=== PATIENT | male | born 1960 | race Caucasian/White ===

== ENCOUNTER 2021-05-23 08:24 | Inpatient (IN) ==
[2021-05-23] MEDS ORDERED: LORazepam 1 MG/2 ML VIAL IV STA (08:34)
[2021-05-23] MEDS ORDERED: LORazepam 2 MG/4 ML VIAL ONE (08:34)
--- NOTE | 2021-05-23 08:43 | Emergency Department Note ---
History of Present Illness General Chief complaint: Hypoglycemia Time Seen by Provider: 05/23/21 08:33 History of Present Illness 60-year-old male presents to the ED via EMS. He apparently is recently living with some friends or family. They called EMS this morning because they heard him moaning in unusual activity in the room. The initial call was for cardiac arrest. They did do a few chest compressions on the patient until they saw him start breathing. EMS arrived and found his blood sugar to be 30. He is known to be diabetic. They did give 1 bag of D10. Blood sugar did improve to over 100 after this. He briefly became slightly more responsive and then had a seizure that lasted for about 30 seconds. He was transported here somewhat combative and subsequently causes IV to be pulled out. His combativeness improved by the time he arrived. He was able to answer some basic questions like his name but otherwise was unable to formulate sentences. He may have some alcohol history as there was some beer near where he was found. He was unable to answer those questions. Shortly after he arrived in the ED, he had another seizure. This lasted for about a minute. Home Medications Medication Instructions Recorded Confirmed Type atorvastatin 10 mg tablet 10 mg PO DAILY 05/23/21 05/23/21 History duloxetine 30 mg capsule,delayed 30 mg PO DAILY 05/23/21 05/23/21 History release glipizide 10 mg tablet 10 mg PO BIDM 05/23/21 05/23/21 History lisinopril 10 mg tablet 10 mg PO DAILY 05/23/21 05/23/21 History metformin 1,000 mg tablet 1,000 mg PO BIDM 05/23/21 05/23/21 History metoprolol tartrate 50 mg tablet 50 mg PO BID 05/23/21 05/23/21 History oxycodone-acetaminophen 10 mg-325 1 tab PO BID 05/23/21 05/23/21 History mg tablet Allergies Allergy/AdvReac Type Severity Reaction Status Date / Time No Known Allergies Allergy Unverified 05/23/21 08:47 Past Med/Surg History Social History Smoking Status: Unknown if ever smoked Feels Safe at Home: Yes Review of Systems Unobtainable due to cognitive status Physical Exam Vital Signs Vital Signs - 24 hr 05/23/21 08:27 05/23/21 08:33 05/23/21 09:10 Temperature 37.4 C Temperature Source Oral Pulse Rate 75 78 Pulse Rate from SpO2 Sensor 78 90 Respiratory Rate 26 H 23 32 H Respiratory Effort / Characteristics Other Respiratory Pattern Regular Blood Pressure 152/89 H 152/89 H 148/85 H Blood Pressure Mean 110 110 106 Blood Pressure Position Lying Pulse Oximetry 100 100 100 Oxygen Delivery Method Non-rebreather Oxygen Flow Rate 15 Sepsis Recent Fever Within 48 Hours No Sepsis New/Unexplained Change in Mental Status No Sepsis Action Taken by Nursing No Action Required 05/23/21 09:30 05/23/21 09:55 05/23/21 10:00 Temperature Temperature Source Pulse Rate 91 H 87 Pulse Rate from SpO2 Sensor 91 H 88 Respiratory Rate 21 22 Respiratory Effort / Characteristics Respiratory Pattern Blood Pressure 140/71 Blood Pressure Mean 94 Blood Pressure Position Pulse Oximetry 98 96 94 Oxygen Delivery Method Room Air Oxygen Flow Rate Sepsis Recent Fever Within 48 Hours Sepsis New/Unexplained Change in Mental Status Sepsis Action Taken by Nursing CONSTITUTIONAL/VITAL SIGNS: Reviewed / noted above. GENERAL: Non-toxic in appearance. INTEGUMENTARY: Warm, dry, and [place]. HEAD: Normocephalic. No trauma. EYES: without scleral icterus or trauma. ENT/OROPHARYNX: clear and moist. Contusion to the left anterior tongue. LYMPHADENOPATHY/NECK: Is supple without lymphadenopathy or meningismus. RESPIRATORY: Clear to auscultation bilaterally. No increased work of breathing. CARDIOVASCULAR: Regular rate and rhythm. GI/ABDOMEN: Soft and nontender. No organomegaly or pulsatile mass. EXTREMITIES: Warm and well perfused. BACK: No CVA tenderness. NEUROLOGICAL: Initially the patient was oriented only to self. He otherwise seems to be postictal and is not following commands or answering other questions or conversing in a sentence. PSYCHIATRIC: Unable to assess MUSCULOSKELETAL: Normally developed with good muscle tone. TRIAGE NURSING DOCUMENTATION REVIEWED. Course Administered Medications Discontinued Medications Sodium Chloride (Nss) 500 mls @ 999 mls/hr IV .Q31M SHAILESH Stop: 05/23/21 09:15 Last Infusion: 05/23/21 09:06 Dose: 0 mls/hr Documented by: [id number] Admin: 05/23/21 08:35 Dose: 999 mls/hr Documented by: [id number] Lorazepam (Ativan) 1 mg in 2 mls @ 2 mls/min IV NOW STA Stop: 05/23/21 08:35 Last Admin: 05/23/21 08:35 Dose: 2 mls/min Documented by: [id number] Lorazepam (Lorazepam 2 Mg/4 Ml Vial) Confirm Administered Dose 2 mg .ROUTE .STK- MED ONE Stop: 05/23/21 08:35 Last Admin: 05/23/21 09:58 Dose: Not Given Documented by: [id number] Critical Care Time I have personally spent 30 minutes of critical care time in the direct management of this patient. This includes bedside care, interpretation of diagnostic studies, and testing, discussion with consultants, patient, and family members, and other required patient management activities. This 30 minutes is in excess of all separately billable procedures. Medical Decision Making Differential Diagnosis Differential includes acute cardiac dysrhythmia, myocardial infarction, CVA, TIA, dehydration, anemia, electrolyte disturbance, seizure, trauma, intracranial bleeding, acute vascular catastrophe, thoracic aortic dissection, PE, abdominal aortic aneurysm rupture, infection, hypoglycemia, overdose, trauma. Medical Records Attestation: I reviewed the patient's medical records. Home Medications Current Medication List: was personally reviewed by me Laboratory Data Attestation: I reviewed the patient's lab results. Result diagrams: 05/23/21 08:42 05/23/21 08:42 Lab Results 05/23/21 05/23/21 05/23/21 Range/Units 08:31 08:42 08:42 WBC 8.57 (4.8-10.8) K/uL RBC 5.16 (4.7-6.1) M/uL Hgb 15.4 (14.0-18.0) g/dL Hct 45.2 (42-52) % MCV 87.6 (80-100) fL MCH 29.8 (25-34) pg MCHC 34.1 (32-36) g/dL RDW Std Deviation 40.4 (36.4-46.3) fL RDW Coeff of Avani 12.5 (11.5-14.5) % Plt Count 273 (130-400) K/uL MPV 8.4 (7.4-10.4) fL Immature Gran % (Auto) 0.1 % Neut % (Auto) 91.5 % Lymph % (Auto) 5.8 % Wilkin % (Auto) 2.6 % Eos % (Auto) 0.0 % Baso % (Auto) 0.0 % Neut # (Auto) 7.84 H (1.4-6.5) K/uL Lymph # (Auto) 0.50 L (1.2-3.4) K/uL Wilkin # (Auto) 0.22 (0.11-0.59) K/uL Eos # (Auto) 0.00 (0-0.5) K/uL Baso # (Auto) 0.00 (0-0.2) K/uL Immature Gran # (Auto) 0.01 (0.00-0.02) K/uL Sodium 134 L (136-145) mmol/L Potassium 4.0 (3.5-5.1) mmol/L Chloride 101 (98-107) mmol/L Carbon Dioxide 22 (21-32) mmol/L Anion Gap 11.0 (3-11) BUN 11 (7-18) mg/dl Creatinine 0.91 (0.6-1.4) mg/dl Est Cr Clr Drug Dosing Not Reportable Est GFR ( Amer) 106.5 ml/min Est GFR (Non-Af Amer) 91.9 ml/min BUN/Creatinine Ratio 11.9 (10-20) Glucose 134 H (70-99) mg/dl POC Glucose 128 H (70-99) mg/dl Lactate (0.4-2.0) mmol/L Calcium 9.3 (8.5-10.1) mg/dl Phosphorus 4.0 (2.5-4.9) mg/dl Magnesium 2.0 (1.8-2.4) mg/dl Total Bilirubin 0.4 (0.2-1) mg/dl AST 27 (15-37) U/L ALT 28 (12-78) U/L Alkaline Phosphatase 115 (45-117) U/L Ammonia Total Creatine Kinase 123 (39-308) U/L Total Protein 8.7 H (6.4-8.2) gm/dl Albumin 3.9 (3.4-5.0) gm/dl Globulin 4.8 H (2.5-4.0) gm/dl Albumin/Globulin Ratio 0.8 L (0.9-2) Urine Color Urine Appearance (Clear) Urine pH (4.5-7.5) Ur Specific Dillon (1.000-1.030) Urine Protein (Negative) Urine Glucose (UA) (Negative) Urine Ketones (Negative) Urine Blood (Negative) Urine Nitrite (Negative) Urine Bilirubin (Negative) Urine Urobilinogen (Negative) Ur Leukocyte Esterase (Negative) Urine WBC (Auto) (0-5) /hpf Urine RBC (Auto) (0-4) /hpf U Hyaline Cast (Auto) (0-5) /lpf U Epithel Cells (Auto) (0-5) /lpf Urine Bacteria (Auto) (Negative) Urine Opiates Screen (Neg) Ur Methadone, Qual (Neg) Urine Barbiturates (Neg) Ur Phencyclidine (PCP) (Neg) U Amphetamin/Meth Scrn (Neg) MDMA (Ecstasy) Screen (Neg) U Benzodiazepines Scrn (Neg) Ur Cocaine Metabolite (Neg) U Marijuana (THC) Screen (Neg) Ethyl Alcohol mg/dL (0-3) mg/dl COVID-19 Eval Order SARS-CoV-2 (PCR) (Negative) 05/23/21 05/23/21 05/23/21 Range/Units 08:42 08:44 08:44 WBC (4.8-10.8) K/uL RBC (4.7-6.1) M/uL Hgb (14.0-18.0) g/dL Hct (42-52) % MCV (80-100) fL MCH (25-34) pg MCHC (32-36) g/dL RDW Std Deviation (36.4-46.3) fL RDW Coeff of Avani (11.5-14.5) % Plt Count (130-400) K/uL MPV (7.4-10.4) fL Immature Gran % (Auto) % Neut % (Auto) % Lymph % (Auto) % Wilkin % (Auto) % Eos % (Auto) % Baso % (Auto) % Neut # (Auto) (1.4-6.5) K/uL Lymph # (Auto) (1.2-3.4) K/uL Wilkin # (Auto) (0.11-0.59) K/uL Eos # (Auto) (0-0.5) K/uL Baso # (Auto) (0-0.2) K/uL Immature Gran # (Auto) (0.00-0.02) K/uL Sodium (136-145) mmol/L Potassium (3.5-5.1) mmol/L Chloride (98-107) mmol/L Carbon Dioxide (21-32) mmol/L Anion Gap (3-11) BUN (7-18) mg/dl Creatinine (0.6-1.4) mg/dl Est Cr Clr Drug Dosing Est GFR ( Amer) ml/min Est GFR (Non-Af Amer) ml/min BUN/Creatinine Ratio (10-20) Glucose (70-99) mg/dl POC Glucose (70-99) mg/dl Lactate 13.4 H* (0.4-2.0) mmol/L Calcium (8.5-10.1) mg/dl Phosphorus (2.5-4.9) mg/dl Magnesium (1.8-2.4) mg/dl Total Bilirubin (0.2-1) mg/dl AST (15-37) U/L ALT (12-78) U/L Alkaline Phosphatase (45-117) U/L Ammonia Cancelled Total Creatine Kinase (39-308) U/L Total Protein (6.4-8.2) gm/dl Albumin (3.4-5.0) gm/dl Globulin (2.5-4.0) gm/dl Albumin/Globulin Ratio (0.9-2) Urine Color Urine Appearance (Clear) Urine pH (4.5-7.5) Ur Specific Dillon (1.000-1.030) Urine Protein (Negative) Urine Glucose (UA) (Negative) Urine Ketones (Negative) Urine Blood (Negative) Urine Nitrite (Negative) Urine Bilirubin (Negative) Urine Urobilinogen (Negative) Ur Leukocyte Esterase (Negative) Urine WBC (Auto) (0-5) /hpf Urine RBC (Auto) (0-4) /hpf U Hyaline Cast (Auto) (0-5) /lpf U Epithel Cells (Auto) (0-5) /lpf Urine Bacteria (Auto) (Negative) Urine Opiates Screen (Neg) Ur Methadone, Qual (Neg) Urine Barbiturates (Neg) Ur Phencyclidine (PCP) (Neg) U Amphetamin/Meth Scrn (Neg) MDMA (Ecstasy) Screen (Neg) U Benzodiazepines Scrn (Neg) Ur Cocaine Metabolite (Neg) U Marijuana (THC) Screen (Neg) Ethyl Alcohol mg/dL 3.7 H (0-3) mg/dl COVID-19 Eval Order SARS-CoV-2 (PCR) (Negative) 05/23/21 05/23/21 05/23/21 Range/Units 08:45 08:45 08:55 WBC (4.8-10.8) K/uL RBC (4.7-6.1) M/uL Hgb (14.0-18.0) g/dL Hct (42-52) % MCV (80-100) fL MCH (25-34) pg MCHC (32-36) g/dL RDW Std Deviation (36.4-46.3) fL RDW Coeff of Avani (11.5-14.5) % Plt Count (130-400) K/uL MPV (7.4-10.4) fL Immature Gran % (Auto) % Neut % (Auto) % Lymph % (Auto) % Wilkin % (Auto) % Eos % (Auto) % Baso % (Auto) % Neut # (Auto) (1.4-6.5) K/uL Lymph # (Auto) (1.2-3.4) K/uL Wilkin # (Auto) (0.11-0.59) K/uL Eos # (Auto) (0-0.5) K/uL Baso # (Auto) (0-0.2) K/uL Immature Gran # (Auto) (0.00-0.02) K/uL Sodium (136-145) mmol/L Potassium (3.5-5.1) mmol/L Chloride (98-107) mmol/L Carbon Dioxide (21-32) mmol/L Anion Gap (3-11) BUN (7-18) mg/dl Creatinine (0.6-1.4) mg/dl Est Cr Clr Drug Dosing Est GFR ( Amer) ml/min Est GFR (Non-Af Amer) ml/min BUN/Creatinine Ratio (10-20) Glucose (70-99) mg/dl POC Glucose (70-99) mg/dl Lactate (0.4-2.0) mmol/L Calcium (8.5-10.1) mg/dl Phosphorus (2.5-4.9) mg/dl Magnesium (1.8-2.4) mg/dl Total Bilirubin (0.2-1) mg/dl AST (15-37) U/L ALT (12-78) U/L Alkaline Phosphatase (45-117) U/L Ammonia Total Creatine Kinase (39-308) U/L Total Protein (6.4-8.2) gm/dl Albumin (3.4-5.0) gm/dl Globulin (2.5-4.0) gm/dl Albumin/Globulin Ratio (0.9-2) Urine Color Yellow Urine Appearance Clear (Clear) Urine pH 5.0 (4.5-7.5) Ur Specific Dillon 1.008 (1.000-1.030) Urine Protein Trace H (Negative) Urine Glucose (UA) Negative (Negative) Urine Ketones Negative (Negative) Urine Blood Negative (Negative) Urine Nitrite Negative (Negative) Urine Bilirubin Negative (Negative) Urine Urobilinogen Negative (Negative) Ur Leukocyte Esterase Negative (Negative) Urine WBC (Auto) 1-5 (0-5) /hpf Urine RBC (Auto) 0-4 (0-4) /hpf U Hyaline Cast (Auto) 1-5 (0-5) /lpf U Epithel Cells (Auto) 10-20 H (0-5) /lpf Urine Bacteria (Auto) Negative (Negative) Urine Opiates Screen Neg (Neg) Ur Methadone, Qual Neg (Neg) Urine Barbiturates Neg (Neg) Ur Phencyclidine (PCP) Neg (Neg) U Amphetamin/Meth Scrn Neg (Neg) MDMA (Ecstasy) Screen Neg (Neg) U Benzodiazepines Scrn Neg (Neg) Ur Cocaine Metabolite Neg (Neg) U Marijuana (THC) Screen Neg (Neg) Ethyl Alcohol mg/dL (0-3) mg/dl COVID-19 Eval Order Covid19 at [facility] SARS-CoV-2 (PCR) (Negative) 05/23/21 05/23/21 05/23/21 Range/Units 08:55 09:42 10:00 WBC (4.8-10.8) K/uL RBC (4.7-6.1) M/uL Hgb (14.0-18.0) g/dL Hct (42-52) % MCV (80-100) fL MCH (25-34) pg MCHC (32-36) g/dL RDW Std Deviation (36.4-46.3) fL RDW Coeff of Avani (11.5-14.5) % Plt Count (130-400) K/uL MPV (7.4-10.4) fL Immature Gran % (Auto) % Neut % (Auto) % Lymph % (Auto) % Wilkin % (Auto) % Eos % (Auto) % Baso % (Auto) % Neut # (Auto) (1.4-6.5) K/uL Lymph # (Auto) (1.2-3.4) K/uL Wilkin # (Auto) (0.11-0.59) K/uL Eos # (Auto) (0-0.5) K/uL Baso # (Auto) (0-0.2) K/uL Immature Gran # (Auto) (0.00-0.02) K/uL Sodium (136-145) mmol/L Potassium (3.5-5.1) mmol/L Chloride (98-107) mmol/L Carbon Dioxide (21-32) mmol/L Anion Gap (3-11) BUN (7-18) mg/dl Creatinine (0.6-1.4) mg/dl Est Cr Clr Drug Dosing Est GFR ( Amer) ml/min Est GFR (Non-Af Amer) ml/min BUN/Creatinine Ratio (10-20) Glucose (70-99) mg/dl POC Glucose 117 H (70-99) mg/dl Lactate (0.4-2.0) mmol/L Calcium (8.5-10.1) mg/dl Phosphorus (2.5-4.9) mg/dl Magnesium (1.8-2.4) mg/dl Total Bilirubin (0.2-1) mg/dl AST (15-37) U/L ALT (12-78) U/L Alkaline Phosphatase (45-117) U/L Ammonia < 10.0 L Total Creatine Kinase (39-308) U/L Total Protein (6.4-8.2) gm/dl Albumin (3.4-5.0) gm/dl Globulin (2.5-4.0) gm/dl Albumin/Globulin Ratio (0.9-2) Urine Color Urine Appearance (Clear) Urine pH (4.5-7.5) Ur Specific Dillon (1.000-1.030) Urine Protein (Negative) Urine Glucose (UA) (Negative) Urine Ketones (Negative) Urine Blood (Negative) Urine Nitrite (Negative) Urine Bilirubin (Negative) Urine Urobilinogen (Negative) Ur Leukocyte Esterase (Negative) Urine WBC (Auto) (0-5) /hpf Urine RBC (Auto) (0-4) /hpf U Hyaline Cast (Auto) (0-5) /lpf U Epithel Cells (Auto) (0-5) /lpf Urine Bacteria (Auto) (Negative) Urine Opiates Screen (Neg) Ur Methadone, Qual (Neg) Urine Barbiturates (Neg) Ur Phencyclidine (PCP) (Neg) U Amphetamin/Meth Scrn (Neg) MDMA (Ecstasy) Screen (Neg) U Benzodiazepines Scrn (Neg) Ur Cocaine Metabolite (Neg) U Marijuana (THC) Screen (Neg) Ethyl Alcohol mg/dL (0-3) mg/dl COVID-19 Eval Order SARS-CoV-2 (PCR) NEGATIVE (Negative) Imaging Data Radiologist's Impression: Head CT 05/23/21 08:[address] DOSE: 832.33 mGy.cm HISTORY: Altered mental status. Seizure. TECHNIQUE: Multiaxial CT images of the head were performed without the use of intravenous contrast. Automated exposure control was utilized for this study. A dose lowering technique was utilized adhering to the principles of ALARA. Comparison: None. Findings: The paranasal sinuses and right mastoid air cells are clear. There is a trace left mastoid effusion. Mild motion artifact at the posterior fossa. The calvarium and skull base are intact. The ventricles and sulci are within normal limits. There is no mass, hematoma, midline shift, or acute infarct. Impression: Mild motion artifact. No definite acute intracranial abnormality. ACT 112: Negative or not required by law. Electronically signed by: Wesley Luna M.D. 05/23/2021 9:30 AM ECG Data Attestation: I personally reviewed and interpreted this ECG as follows: Additional Comments: Twelve-lead EKG: Per my interpretation of there is a normal sinus rhythm at a rate of 80. No ST elevation. Normal QTC. No PVCs. MDM Narrative Patient presents with altered mental status and initially was hypoglycemic for EMS with a blood sugar of 30. He had one seizure in route for EMS and also had a second seizure here. Only known history is diabetes. He is reportedly only living recently with some friends or family at this time. The patient did not come in with any family or friends upon his arrival. Unable to give any additional information or history. Was only able to state his name. BSG on his arrival was 128. A CT scan of the brain did not show acute process. EKG shows a normal sinus rhythm. CBC and chemistry panel was unremarkable. Lactic acid level is elevated. Recheck of blood sugars or normal. Urine did not show infection. Alcohol level was 3.7. Urine tox screen was negative. The patient did improve during his ED stay. He still seems somewhat confused after he started to awaken. Was given a milligram of IV Ativan shortly after he arrived after a second seizure. The patient was given some IV fluids. He was given a banana bag. The patient will be seen by the hospitalist for further inpatient evaluation and care. The patient does admit to being on Metformin for his diabetes. He also admits to taking medication for hypertension and high cholesterol. Impression & Plan Hypoglycemia, Seizure, Alcohol withdrawal Discharge Plan Visit Data Chief Complaint: Hypoglycemia ED Provider: Rosendo Tristan Discharge Problem: Hypoglycemia, Seizure, Alcohol withdrawal Patient Disposition: Being Evaluated by Hospitalist Forms Stand Alone Forms: [facility], Virtual Emergency Department, Important Visit Information Prescriptions Prescriptions: No Action atorvastatin 10 mg Tablet 10 mg PO DAILY RF: 0 glipizide 10 mg Tablet 10 mg PO BIDM RF: 0 oxycodone-acetaminophen 10-325 mg Tablet 1 tab PO BID RF: 0 metformin 1,000 mg Tablet 1,000 mg PO BIDM RF: 0 lisinopril 10 mg Tablet 10 mg PO DAILY RF: 0 metoprolol tartrate 50 mg Tablet 50 mg PO BID RF: 0 duloxetine 30 mg Capsule,Delayed Release(Dr/Ec) 30 mg PO DAILY RF: 0 Referrals Referrals: PCP,NO [Physician] -
[2021-05-23] MEDS ORDERED: SODIUM CHLORIDE 0.9% 500 ML IV SCH (08:45)
[2021-05-23 08:59] LABS: Hematocrit (blood only) 45.2 % (42-52); Hemoglobin 15.4 g/dL (14.0-18.0); Immature Granulocytes # (auto) 0.01 K/uL (0.00-0.02); Immature Granulocytes % (auto) 0.1 %; Lymphocytes % (auto) 5.8 %; Mean Corpuscular Hemoglobin 29.8 pg (25-34); Mean Corpuscular Hgb Conc 34.1 g/dL (32-36); Mean Corpuscular Volume 87.6 fL (80-100); Mean Platelet Volume 8.4 fL (7.4-10.4); Monocytes # (auto) 0.22 K/uL (0.11-0.59); Monocytes % (auto) 2.6 %; Neutrophils # (auto) 7.84 K/uL (1.4-6.5); Neutrophils % (auto) 91.5 %; Platelet Count 273 K/uL (130-400); RDW Coefficient of Variation 12.5 % (11.5-14.5); RDW Standard Deviation 40.4 fL (36.4-46.3); Red Blood Count 5.16 M/uL (4.7-6.1); White Blood Count 8.57 K/uL (4.8-10.8)
[2021-05-23 09:21] LABS: Alanine Aminotransferase 28 U/L (12-78); Albumin Level 3.9 gm/dl (3.4-5.0); Aspartate Aminotransferase 27 U/L (15-37); BUN Creatinine Ratio 11.9 (10-20); Blood Urea Nitrogen 11 mg/dl (7-18); Calcium 9.3 mg/dl (8.5-10.1); Carbon Dioxide 22 mmol/L (21-32); Chloride 101 mmol/L (98-107); Est GFR (African American) 106.5 ml/min; Est GFR (Non-African American) 91.9 ml/min; Glucose 134 mg/dl (70-99); Sodium 134 mmol/L (136-145)
[2021-05-23 09:24] LABS: Albumin Globulin Ratio 0.8 (0.9-2); Alkaline Phosphatase 115 U/L (45-117); Bilirubin,Total 0.4 mg/dl (0.2-1); Creatine Kinase 123 U/L (39-308); Globulin 4.8 gm/dl (2.5-4.0); Total Protein 8.7 gm/dl (6.4-8.2)
--- NOTE | 2021-05-23 09:32 | CT Scan Report ---
HEAD CT NONCONTRAST CT DOSE: 832.33 mGy.cm HISTORY: Altered mental status. Seizure. TECHNIQUE: Multiaxial CT images of the head were performed without the use of intravenous contrast. A utomated exposure control was utilized for this study. A dose lowering technique was utilized adheri ng to the principles of ALARA. Comparison: None. Findings: The paranasal sinuses and right mastoid air cells are clear. There is a trace left mastoid effusion. Mild motion artifact at the posterior fossa. The calvarium and skull base are intact. The v entricles and sulci are within normal limits. There is no mass, hematoma, midline shift, or acute inf arct. Impression: Mild motion artifact. No definite acute intracranial abnormality. ACT 112: Negative or not required by law. Electronically signed by: Wesley Luna M.D. 05/23/2021 9:30 AM
[2021-05-23 09:42] LABS: Appearance Urine Clear (Clear); Bacteria Urine Automated Negative (Negative); Bilirubin Urine Negative (Negative); Blood Urine Negative (Negative); Color Urine Yellow; Glucose Urine UA Negative (Negative); Ketones Urine Negative (Negative); Leukocyte Esterase Urine Negative (Negative); Nitrite Urine Negative (Negative); Protein Urine Trace (Negative); RBC Urine Automated 0-4 /hpf (0-4); Specific Gravity Urine 1.008 (1.000-1.030); Urobilinogen Urine Negative (Negative)
[2021-05-23 09:57] LABS: Amphetamines+Metham, Urine Neg (Neg); Barbiturates, Urine Neg (Neg); Benzodiazepine, Urine Neg (Neg); Cocaine, Urine Neg (Neg); MDMA (Ecstacy), Urine Neg (Neg); Methadone, Urine Neg (Neg); Opiate, Urine Neg (Neg); Phencyclidine, Urine Neg (Neg)
[2021-05-23] MEDS ORDERED: MULTI-VITAMIN INFUSION 10 ML, THIAMINE HCL 100 MG, FOLIC ACID 1 MG in SODIUM CHLORIDE 0... IV ONE (10:09)
[2021-05-23] MEDS ORDERED: GABAPENTIN 1200MG ALCOHOL WITHDRAWAL LOAD PO STA (11:49)
[2021-05-23] MEDS ORDERED: ATIVAN IV ALCOHOL WITHDRAWL IV PRN (11:49)
[2021-05-23] MEDS ORDERED: SODIUM CHLORIDE 0.9% 1000ML 1,000 ML IV ONE (12:00)
--- NOTE | 2021-05-23 12:00 | XRay Report ---
SINGLE VIEW CHEST CLINICAL HISTORY: Change in mental status. FINDINGS: An AP, portable, upright chest radiograph is obtained. No prior studies are available for c omparison at the time of dictation. The examination is degraded by portable technique and apical posi tioning. The cardiomediastinal silhouette is unremarkable heart is top normal for projection. The debbie gs and pleural spaces are clear. No pneumothorax is seen. The bony thorax is grossly intact. IMPRESSION: No active disease in the chest. ACT 112: Negative or not required by law. Electronically signed by: Fadi Fields M.D. 05/23/2021 11:59 AM
[2021-05-23] MEDS ORDERED: GLUCOSE 10 TABS/TUBE PO PRN (12:04)
[2021-05-23] MEDS ORDERED: GLUCOSE 40% GEL 15 GM TUBE PO PRN (12:04)
[2021-05-23] MEDS ORDERED: DEXTROSE 50% 50 ML SYRINGE IV PRN (12:04)
[2021-05-23] MEDS ORDERED: CARBOHYDRATES FOR HYPOGLYCEMIA PO PRN (12:04)
[2021-05-23] MEDS ORDERED: GLUCAGON FOR INJ 1 MG VIAL SQ PRN (12:04)
[2021-05-23 12:52] LABS: Estimated Average Glucose 114 mg/dl; Hemoglobin A1C 5.6 % (4.5-5.6)
[2021-05-23] MEDS ORDERED: GABAPENTIN 600 MG TAB PO ONE (13:00)
--- NOTE | 2021-05-23 13:18 | History & Physical Report ---
Date of Service May 23, 2021 Assessment & Plan (1) Hypoglycemia: (2) Seizure: (3) Alcohol abuse: (4) Alcohol withdrawal: (5) Diabetes mellitus: (6) HTN (hypertension): (7) Chronic back pain: (8) Lactic acid acidosis: Plan: Possible seizure: likely 2/2 ETOH withdrawal -CT head: no acute finding -MRI brain pending -consulted neurology -[facility] protocol -NPO until bedside assessment of swallowing by nurse -will start the pt on folic acid and thiamine - EEG placed Hypoglycemia: -improved with dextrose -will hold home DMII meds - D5 NS 100 cc/hr until come off of NPO - q2 hrs glucose check until PO intake Lactic acidosis - resolved with fluid bolus ETOH abuse: - will discuss possible outpt rehab HTN: -continue his home meds Chronic back pain & on opioid -due to recent hx of unresponsiveness will hold oxycodone 10-325mg today and consider starting as his mental status improve HLD: -c/w statin DVT ppx: Lovenox Diet: NPO for now History of Present Illness Chief Complaint: Unresponsiveness, hypoglycemia and possible seizure Primary Care Provider: Luis Patel MD Pt is a 60 y/o M with hx of HTN, HLD, DMII, Chronic back pain on chronic oxycodone brought in by ambulance after he was found unresponsive. Per EMS his glucose was 30 therefore he received dextrose. Per EMS pt also had possible seizure (last for 30 seconds) but did not get any medication. In the ER: pt had another possible seizure (lasted for 1 min) and received Ativan at that time. At bedside: pt denied any CP, SOB, POSADAS, blurry vision, abd pain, N/V or diarrhea. He complained of fatigue. Denied any recent hx of head trauma, illicit drug use, tick bite, rash or URI symptoms. He drinks about 2 12 Oz beers/day. Per pt he last had a drink 2 days ago. Allergies Allergy/AdvReac Type Severity Reaction Status Date / Time No Known Allergies Allergy Unverified 05/23/21 08:47 Home Medications Medication Instructions Recorded Confirmed Type atorvastatin 10 mg tablet 10 mg PO DAILY 05/23/21 05/23/21 History duloxetine 30 mg capsule,delayed 30 mg PO DAILY 05/23/21 05/23/21 History release glipizide 10 mg tablet 10 mg PO BIDM 05/23/21 05/23/21 History lisinopril 10 mg tablet 10 mg PO DAILY 05/23/21 05/23/21 History metformin 1,000 mg tablet 1,000 mg PO BIDM 05/23/21 05/23/21 History metoprolol tartrate 50 mg tablet 50 mg PO BID 05/23/21 05/23/21 History oxycodone-acetaminophen 10 mg-325 1 tab PO BID 05/23/21 05/23/21 History mg tablet Past Med/Surg History Medical History (Updated 05/23/21 @ 17:44 by Jailene Freed MD) Chronic back pain Diabetes mellitus HLD (hyperlipidemia) HTN (hypertension) Surgical History (Updated 05/23/21 @ 17:39 by Jailene Freed MD) History of hernia repair Family History (Updated 05/23/21 @ 17:40 by Jailene Freed MD) Other Family history non-contributory Social History Smoking Status: Never smoker Do You Dip or Chew Tobacco: Yes; Hx Alcohol Use: Yes Alcohol type: beer Hx Substance Use: No Preferred Language: Citizen Of [place] Communication Ability: Effective Area Plant Manager Required: No Beliefs That Will Affect Care: None Current Living Situation: Family Current Living Situation Comment: lives with cousin Other Information That Helps Us Care for You: No Feels Safe at Home: Yes Safety Concerns: Feels Safe At This Time Assistive Devices: Contacts Assistive Devices Comment: contacts in, patient reported it is okay to leave them in Review of Systems Review of Systems: At least 10 systems were reviewed except fatigue Physical Exam Physical Exam: General:. NAD, well developed HEENT:. Normal Conjunctiva, EOMI, PERRLA Lungs:. CTA, no wheezing or crackles Heart:. Normal S1, S2, no murmur Abdominal:. ND, Soft, NT, normal BS MSK:. No leg edema Neuro: CN II-XII intact, normal motor strength Skin:. no rash or open wound Psych:. AAOx2 (could not recall month and date) Results & Data Results & Data ([facility]) Vital Signs (Past 12 Hours) Vital Signs Temp Pulse Resp BP Pulse Ox 05/23/21 11:00 80 23 137/75 94 05/23/21 10:30 77 22 143/63 H 91 05/23/21 10:00 87 22 140/71 94 05/23/21 09:55 96 05/23/21 09:30 91 H 21 98 05/23/21 09:10 32 H 148/85 H 100 05/23/21 08:33 37.4 C 78 23 152/89 H 100 05/23/21 08:27 75 26 H 152/89 H 100 Code Status & VTE Plan VTE Prophylaxis Plan VTE Prophylaxis will be ordered: Yes (1) Alcohol withdrawal Complication of substance-induced condition: with unspecified complication Qualified Code(s): F10.239 - Alcohol dependence with withdrawal, unspecified
[2021-05-23] MEDS: FOLIC ACID 1 MG TAB PO SCH (13:33)
[2021-05-23] MEDS: INSULIN ASPART 100 UNITS/ML 3 ML PEN SC SCH ×2 (16:52→20:19)
--- NOTE | 2021-05-23 16:57 | Electrocardiogram Report ---
Test Reason : Blood Pressure : / mmHG Vent. Rate : 081 BPM Atrial Rate : 082 BPM P-R Int : 196 ms QRS Dur : 086 ms QT Int : 374 ms P-R-T Axes : 068 076 064 degrees QTc Int : 434 ms Normal sinus rhythm Possible Left atrial enlargement Nonspecific ST abnormality Abnormal ECG No previous ECGs available Confirmed by Romulo Stroud ([id number]) on 05/23/2021 4:57:32 PM Referred By: REFERRED SELF Confirmed By:Romulo Stroud
[2021-05-23 17:05] LABS: Lyme Ab IgG w/WB Rflx Negative (Negative); Lyme Ab IgM w/WB Rflx Negative (Negative)
[2021-05-23] MEDS ORDERED: D5W AND 1/2NSS 1,000 ML IV SCH (18:00)
[2021-05-23] MEDS: GABAPENTIN 600 MG TAB PO SCH ×2 (18:09→22:24)
[2021-05-23] MEDS: THIAMINE HCL 100 MG TAB PO SCH (18:09)
[2021-05-23] MEDS: PATIENT'S HEIGHT AND/OR WEIGHT NEEDED SCH ×3 (18:11→23:21)
[2021-05-23] MEDS: ENOXAPARIN INJ 40 MG/0.4 ML SYR SQ SCH (18:38)
[2021-05-23] MEDS: METOPROLOL TARTRATE 50 MG TAB PO SCH (20:20)
[2021-05-23] MEDS ORDERED: GADOBUTROL 65ML VIAL IV ONE (21:27)
[2021-05-24] MEDS: ENOXAPARIN INJ 40 MG/0.4 ML SYR SQ SCH ×2 (05:37→18:05)
[2021-05-24 07:15] LABS: Albumin Level 3.2 gm/dl (3.4-5.0); BUN Creatinine Ratio 12.1 (10-20); Calcium 8.4 mg/dl (8.5-10.1); Est GFR (African American) 118.3 ml/min; Est GFR (Non-African American) 102.1 ml/min; Magnesium 1.8 mg/dl (1.8-2.4); Potassium 3.9 mmol/L (3.5-5.1)
[2021-05-24] MEDS: INSULIN ASPART 100 UNITS/ML 3 ML PEN SC SCH ×4 (07:38→21:10)
[2021-05-24 07:42] LABS: Albumin Globulin Ratio 0.8 (0.9-2); Phosphorus 1.8 mg/dl (2.5-4.9); Total Protein 7.2 gm/dl (6.4-8.2)
[2021-05-24] MEDS ORDERED: GABAPENTIN 600 MG TAB PO SCH (08:00)
[2021-05-24] MEDS: FOLIC ACID 1 MG TAB PO SCH (08:32)
[2021-05-24] MEDS: METOPROLOL TARTRATE 50 MG TAB PO SCH ×2 (08:33→21:05)
[2021-05-24] MEDS: THIAMINE HCL 100 MG TAB PO SCH (08:33)
[2021-05-24] MEDS: DULoxetine HCL 30 MG CAP PO SCH (08:34)
[2021-05-24] MEDS: ATORVASTATIN 10 MG TAB PO SCH (08:34)
[2021-05-24] MEDS: lisinopril 10 MG TAB PO SCH (08:34)
--- NOTE | 2021-05-24 09:23 | Magnetic Resonance Report ---
MR brain seizure wo/w con HISTORY: 60 years-old Male Possible seizure acute seizure like activity COMPARISON: Head CT of same day TECHNIQUE: Multiplanar multisequence MRI of the brain was obtained both with and without the use of 1 0.0 mL Gadavist utilizing seizure protocol. FINDINGS: Consultant localizer images demonstrate no gross extracranial abnormality. No restricted diffusion to sugg est acute or subacute infarct. Motion degraded exam. No acute intracranial hemorrhage, midline shift, abnormal extra axial collection, hydrocephalus or intracranial mass. Minimal patchy T2/FLAIR hyperin tensities throughout the subcortical white matter are nonspecific however suggests probable chronic m icrovascular ischemic disease. No acute seizure focus, medial temporal sclerosis, cortical dysplasia or whitfield matter heterotopia. Cerebral venous sinuses and major arterial flow voids are patent. Moderate mastoid effusion. Mild to moderate mucosal thickening of the ethmoid air cells. The skull, orbits and soft tissues are unremark able. No abnormal intra-axial or extra-axial enhancement. IMPRESSION: 1. No acute intracranial abnormality. 2. No abnormal enhancement. ACT 112: Negative or not required by law. The above report was generated using voice recognition software. It may contain grammatical, syntax o r spelling errors. Electronically signed by: Naveen Mart M.D. 05/24/2021 9:21 AM
[2021-05-24] MEDS ORDERED: SODIUM PHOSPHATE 3 MMOL/1 ML 5 ML VIAL IV ONE (09:42)
--- NOTE | 2021-05-24 09:45 | Hospitalist Progress Note ---
Date of Service May 24, 2021 Assessment & Plan (1) Seizure: Plan: Hypoglycemic induced seizure, no antiepileptic drug therapy recommended by neurology at this time. Maintain euglycemia with plan to discontinue glipizide at discharge and decrease level of Metformin with close follow-up with primary care. Replete electrolytes as needed. Likely discharge to home. No driving for 6 months. Plan and restrictions were discussed with daughter Carla by phone today. (2) Hypoglycemia: Plan: Hypoglycemia resolved off glipizide. Plan as above. (3) Alcohol abuse: Plan: Uncertain how much alcohol he uses, however he does not report heavy drinking. There is a possibility he experienced an alcohol withdrawal seizure, however, with a sugar of 30 it was more likely related to his hypoglycemia. Continue plan as above. Encouraged to quit drinking/cut back. (4) Diabetes mellitus: Plan: A1c is 5.4, likely reflecting episodes of low blood sugar on average in the past 3 months. This underscores the need to de-escalate his therapy. 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 Modify lifestyle to fit need. (5) HTN (hypertension): Plan: BP around goal, continue home dose of lisinopril. (6) Chronic back pain: Plan: Narcotic dependent, has been off of this in the past 36 hours because of fatigue and lethargy. Will restart as needed. (7) DVT prophylaxis: Plan: Lovenox Full code Disposition-to home in a.m. [facility] Admission and Anticipated Discharge Date Admission Date: May 23, 2021 Subjective 60-year-old man with diabetes on Metformin and glipizide who had a new onset seizure that was witnessed. He was documented to have an hypoglycemia with blood sugar in the 30s. He has no history of seizures in the past. MRI of the brain with contrast was normal. Work-up also included a normal routine EEG. His lab work did not reveal any signs of infection. He did have some low phosphorus which was replaced today. He has a questionable history of heavy alcohol use and was placed on a gabapentin protocol however, he was lethargic and sleeping all day yesterday and this was held today. Today he is more alert and he is oriented although still has moments of confusion, it appears. Denies any pain. Diabetic nurse educator discussed diabetes medications and nutrition with him today as well as checking his blood sugar. He was given a blood sugar monitor kit. He is tolerating p.o. Request urinary catheter to be removed and this was discontinued. Minimal insulin coverage needed. No further episodes of hypoglycemia were noted. Discussed case with his daughter Carla by phone. Review of Systems Review of Systems: At least ten systems were reviewed and negative except as indicated in HPI above. Physical Exam Physical Exam: CONSTITUTIONAL: WNWD, vitals as above, generally well- appearing EYES: EOMI bilaterally, pupils are round and equal bilaterally, normal conjunctivae, no scleral icterus ENT: external ear and nose normal, MMM RESPIRATORY: clear to auscultation bilaterally, no crackles, rales or wheezes, normal respiratory effort CARDIOVASCULAR: regular rate and rhythm, S1 and 2 heard without murmurs, gallops or rubs, no JVD, no peripheral edema GASTROINTESTINAL: soft, nontender, nondistended, no guarding. MUSCULOSKELETAL: strength 5/5 throughout, head is normocephalic and atraumatic SKIN: warm and dry NEUROLOGIC: No facial palsy, no dysarthria. CN 2-12 grossly intact, no sensory deficit, normal cognition, normal speech, no tremor PSYCHIATRIC: alert cooperative and oriented to person, place and time. Euthymic mood, makes good eye contact, language grossly intact, recent and remote memory grossly intact. Results & Data Results & Data ([facility]) Vital Signs (Past 12 Hours) Vital Signs Temp Pulse Pulse Resp BP BP Pulse Ox 05/24/21 09:30 98 H 05/24/21 07:32 36.9 C 88 16 128/63 96 05/24/21 04:07 36.8 C 78 18 146/85 H 95 05/24/21 01:11 73 05/23/21 23:58 37.0 C 80 18 142/77 H 94 Laboratory Results [facility] 05/24/21 06:14 Sodium 135 L Potassium 3.9 Chloride 105 Carbon Dioxide 23 BUN 9 Creatinine 0.72 Glucose 111 H Calcium 8.4 L Liver Function 05/24/21 Range/Units 06:14 Total Bilirubin 1.0 D (0.2-1) mg/dl AST 15 (15-37) U/L ALT 21 (12-78) U/L Alkaline Phosphatase 89 (45-117) U/L Albumin 3.2 L (3.4-5.0) gm/dl Medications Administered Current Inpatient Medications Atorvastatin Calcium (Atorvastatin 10 Mg Tab) 10 mg PO DAILY [facility] Stop: 06/23/21 08:59 Last Admin: 05/24/21 08:34 Dose: 10 mg Documented by: Dextrose (Dextrose 50% 50 Ml Syringe) 25 - 50 ml IV UD PRN; Protocol PRN Reason: Hypoglycemia Protocol Stop: 06/22/21 12:03 Last Admin: 05/23/21 15:01 Dose: 25 ml Documented by: Duloxetine HCl (Duloxetine Hcl 30 Mg Cap) 30 mg PO DAILY [facility] Stop: 06/23/21 08:59 Last Admin: 05/24/21 08:34 Dose: 30 mg Documented by: Enoxaparin Sodium (Enoxaparin Inj 40 Mg/0.4 Ml Syr) 40 mg SQ Q12H [facility] Stop: 06/22/21 18:29 Last Admin: 05/24/21 05:37 Dose: Not Given Documented by: Folic Acid (Folic Acid 1 Mg Tab) 1 mg PO QAM [facility] Stop: 06/22/21 08:59 Last Admin: 05/24/21 08:32 Dose: 1 mg Documented by: Gabapentin (Gabapentin 600 Mg Tab) 600 mg PO Q8H [facility] Stop: 05/25/21 00:01 Last Admin: 05/24/21 08:32 Dose: 600 mg Documented by: Gabapentin (Gabapentin 600 Mg Tab) 600 mg PO Q24H [facility] Stop: 05/26/21 23:46 Gabapentin (Gabapentin 600 Mg Tab) 600 mg PO Q12H [facility] Stop: 05/26/21 00:01 Glucagon (Glucagon For Inj 1 Mg Vial) 1 mg SQ UD PRN; Protocol PRN Reason: Hypoglycemia Protocol Stop: 06/22/21 12:03 Glucose (Glucose 10 Tabs/Tube) 4 - 8 tabs PO UD PRN; Protocol PRN Reason: Hypoglycemia Protocol Stop: 06/22/21 12:03 Glucose (Glucose 40% Gel 15 Gm Tube) 15 - 30 gm PO UD PRN; Protocol PRN Reason: Hypoglycemia Protocol Stop: 06/22/21 12:03 Lorazepam (Ativan) 1 mg in 2 mls @ 2 mls/min IV UD PRN; Protocol PRN Reason: EtOH Withdrawl AWSS Score 6,7 Stop: 06/22/21 11:48 Lorazepam (Ativan) 2 mg in 4 mls @ 4 mls/min IV UD PRN; Protocol PRN Reason: EtOH Withdrawl AWSS Score 8,9 Stop: 06/22/21 11:48 Lorazepam (Ativan) 3 mg in 6 mls @ 4 mls/min IV ONCE PRN; Protocol PRN Reason: EtOH Withdrawl AWSS Score >=10 Stop: 06/22/21 11:48 Insulin Aspart (Insulin Aspart 100 Units/Ml 3 Ml Pen) 0 units SC ACHS [facility] Stop: 06/22/21 16:29 Last Admin: 05/24/21 07:38 Dose: Not Given Documented by: Lisinopril (Lisinopril 10 Mg Tab) 10 mg PO DAILY [facility] Stop: 06/23/21 08:59 Last Admin: 05/24/21 08:34 Dose: 10 mg Documented by: Metoprolol Tartrate (Metoprolol Tartrate 50 Mg Tab) 50 mg PO BID [facility] Stop: 06/22/21 20:59 Last Admin: 05/24/21 08:33 Dose: 50 mg Documented by: Miscellaneous (Carbohydrates For Hypoglycemia ) 15 - 30 gm PO UD PRN PRN Reason: Hypoglycemia Protocol Stop: 06/22/21 12:03 Sodium Phosphate (Sodium Phosphate 3 Mmol/1 Ml 5 Ml Vial) 30 mmol IV ONE ONE Stop: 05/24/21 09:43 Thiamine HCl (Thiamine Hcl 100 Mg Tab) 100 mg PO QAM [facility] Stop: 06/22/21 16:59 Last Admin: 05/24/21 08:33 Dose: 100 mg Documented by: (1) Diabetes mellitus Diabetes mellitus type: type 2 Diabetes mellitus equipment operator intermodal yard insulin use: without senior living use Diabetes mellitus complication status: without complication Qualified Code(s): E11.9 - Type 2 diabetes mellitus without complications
[2021-05-24] MEDS ORDERED: SODIUM PHOSPHATE 30 MMOL in SODIUM CHLORIDE 0.9% 500 ML IV ONE (10:00)
--- NOTE | 2021-05-24 14:11 | Electroencephalogram ---
EEG Procedure Note Date of Service May 24, 2021 Start / End Times Start Time: 10:31 End Time: 10:[address] Kim Carranza History A 60 year old male with alcohol withdrawal and seizure. EEG performed for evaluation of epileptiform activity. Home Medication List Medication Instructions Recorded Confirmed Type atorvastatin 10 mg tablet 10 mg PO DAILY 05/23/21 05/23/21 History duloxetine 30 mg capsule,delayed 30 mg PO DAILY 05/23/21 05/23/21 History release glipizide 10 mg tablet 10 mg PO BIDM 05/23/21 05/23/21 History lisinopril 10 mg tablet 10 mg PO DAILY 05/23/21 05/23/21 History metformin 1,000 mg tablet 1,000 mg PO BIDM 05/23/21 05/23/21 History metoprolol tartrate 50 mg tablet 50 mg PO BID 05/23/21 05/23/21 History oxycodone-acetaminophen 10 mg-325 1 tab PO BID 05/23/21 05/23/21 History mg tablet Inpatient Medication List Atorvastatin Calcium (Atorvastatin 10 Mg Tab) 10 mg PO DAILY [facility] Stop: 06/23/21 08:59 Last Admin: 05/24/21 08:34 Dose: 10 mg Documented by: [id number] Dextrose (Dextrose 50% 50 Ml Syringe) 25 - 50 ml IV UD PRN; Protocol PRN Reason: Hypoglycemia Protocol Stop: 06/22/21 12:03 Last Admin: 05/23/21 15:01 Dose: 25 ml Documented by: [id number] Duloxetine HCl (Duloxetine Hcl 30 Mg Cap) 30 mg PO DAILY [facility] Stop: 06/23/21 08:59 Last Admin: 05/24/21 08:34 Dose: 30 mg Documented by: [id number] Enoxaparin Sodium (Enoxaparin Inj 40 Mg/0.4 Ml Syr) 40 mg SQ Q12H [facility] Stop: 06/22/21 18:29 Last Admin: 05/24/21 05:37 Dose: Not Given Documented by: [id number] Admin: 05/23/21 18:38 Dose: 40 mg Documented by: [id number] Folic Acid (Folic Acid 1 Mg Tab) 1 mg PO QAM [facility] Stop: 06/22/21 08:59 Last Admin: 05/24/21 08:32 Dose: 1 mg Documented by: [id number] Admin: 05/23/21 13:33 Dose: 1 mg Documented by: [id number] Sodium Phosphate 30 mmol/ (Sodium Chloride) 510 mls @ 88 mls/hr IV ONE ONE Stop: 05/24/21 15:47 Last Admin: 05/24/21 10:24 Dose: 88 mls/hr Documented by: [id number] Insulin Aspart (Insulin Aspart 100 Units/Ml 3 Ml Pen) 0 units SC ACHS [facility] Stop: 06/22/21 16:29 Last Admin: 05/24/21 12:01 Dose: 2 units Documented by: [id number] Cosigned by: [id number] Admin: 05/24/21 07:38 Dose: Not Given Documented by: [id number] Cosigned by: [id number] Admin: 05/23/21 20:19 Dose: Not Given Documented by: [id number] Admin: 05/23/21 16:52 Dose: Not Given Documented by: [id number] Lisinopril (Lisinopril 10 Mg Tab) 10 mg PO DAILY [facility] Stop: 06/23/21 08:59 Last Admin: 05/24/21 08:34 Dose: 10 mg Documented by: [id number] Metoprolol Tartrate (Metoprolol Tartrate 50 Mg Tab) 50 mg PO BID [facility] Stop: 06/22/21 20:59 Last Admin: 05/24/21 08:33 Dose: 50 mg Documented by: [id number] Admin: 05/23/21 20:20 Dose: Not Given Documented by: [id number] Thiamine HCl (Thiamine Hcl 100 Mg Tab) 100 mg PO QAM [facility] Stop: 06/22/21 16:59 Last Admin: 05/24/21 08:33 Dose: 100 mg Documented by: [id number] Admin: 05/23/21 18:09 Dose: Not Given Documented by: [id number] Discontinued Medications Gabapentin (Gabapentin 600 Mg Tab) 1,200 mg PO 1300 ONE Stop: 05/23/21 13:01 Last Admin: 05/23/21 13:33 Dose: 1,200 mg Documented by: [id number] Gabapentin (Gabapentin 600 Mg Tab) 600 mg PO Q6H [facility] Stop: 05/24/21 00:01 Last Admin: 05/23/21 22:24 Dose: 600 mg Documented by: [id number] Admin: 05/23/21 18:09 Dose: Not Given Documented by: [id number] Gabapentin (Gabapentin 600 Mg Tab) 600 mg PO Q8H [facility] Stop: 05/25/21 00:01 Last Admin: 05/24/21 08:32 Dose: 600 mg Documented by: [id number] Gadobutrol (Gadobutrol 65ml Vial) 10 ml IV ONCE ONE Stop: 05/23/21 21:28 Last Admin: 05/23/21 21:27 Dose: 10 ml Documented by: [id number] Sodium Chloride (Nss) 500 mls @ 999 mls/hr IV .Q31M [facility] Stop: 05/23/21 09:15 Last Infusion: 05/23/21 09:06 Dose: 0 mls/hr Documented by: [id number] Admin: 05/23/21 08:35 Dose: 999 mls/hr Documented by: [id number] Lorazepam (Ativan) 1 mg in 2 mls @ 2 mls/min IV NOW STA Stop: 05/23/21 08:35 Last Admin: 05/23/21 08:35 Dose: 2 mls/min Documented by: [id number] Multivitamins 10 ml/ Thiamine HCl 100 mg/ Folic Acid 1 mg/Sodium Chloride 1,011.2 mls @ 1,011.2 mls/hr IV .Q1H ONE Stop: 05/23/21 11:08 Last Infusion: 05/23/21 12:33 Dose: 0 mls/hr Documented by: [id number] Admin: 05/23/21 11:33 Dose: 1,011.2 mls/hr Documented by: [id number] Sodium Chloride (Nss 1000ml) 1,000 mls @ 999 mls/hr IV .Q1H1M ONE Stop: 05/23/21 13:00 Last Admin: 05/23/21 16:05 Dose: Not Given Documented by: [id number] Dextrose/Sodium Chloride (D5w And 1/2nss) 1,000 mls @ 100 mls/hr IV .Q10H [facility] Stop: 05/24/21 13:59 Last Infusion: 05/23/21 23:21 Dose: 0 mls/hr Documented by: [id number] Admin: 05/23/21 18:32 Dose: 100 mls/hr Documented by: [id number] Lorazepam (Lorazepam 2 Mg/4 Ml Vial) Confirm Administered Dose 2 mg .ROUTE .STK- MED ONE Stop: 05/23/21 08:35 Last Admin: 05/23/21 09:58 Dose: Not Given Documented by: [id number] Miscellaneous (Patient's Height And/Or Weight Needed) 1 ea N/A Q2H [facility] Stop: 06/22/21 15:59 Last Admin: 05/23/21 23:21 Dose: Not Given Documented by: [id number] Admin: 05/23/21 20:21 Dose: 1 ea Documented by: [id number] Admin: 05/23/21 20:21 Dose: 1 ea Documented by: [id number] Admin: 05/23/21 18:11 Dose: Not Given Documented by: [id number] Description This is a 21 electrode EEG with a single channel dedicated to limited EKG. The electrodes were placed in accordance with the International 10-20 system. REPORT: At onset of the EEG the patient is drowsy. The background is symmetric. The posterior dominant rhythm is 9 Hz. There is a normal anterior to posterior gradient. Drowsiness is characterized by increased theta activity, reduced blink rate, and decreased myogenic artifact. Photic stimulation does not induce any abnormalities. Interpretation IMPRESSION: This is a normal awake and drowsy routine EEG. There is no evidence of focal slowing or epileptiform activity.
--- NOTE | 2021-05-24 14:12 | Neurology Consultation ---
Date of Consultation May 24, 2021 Assessment & Plan (1) Diabetes mellitus: (2) Hypoglycemia: (3) Seizure: A pleasant 60-year-old male with history of hypertension, hyperlipidemia, and whe-[id number] diabetes admitted with a unresponsive episode followed by a witnessed seizure. Clinical history would be supportive of a symptomatic seizure due to hypoglycemia. Blood glucose was documented in the field to be 30 which likely played a significant role in his level of consciousness. Per my discussion with the patient this afternoon he has no history of prior seizures. He denies any history of alcohol withdrawal. At the moment the patient does not appear to be with an alcohol withdrawal. Hospital work-up to date has been thorough including a normal routine EEG as well as an MRI of the brain which showed no evidence of acute intracranial abnormality. Lab work was also reassuring without any clear signs of infection. At the moment the patient does not have any focal neurological deficit and I assume he is back to his baseline. He is following simple commands and is hoping to go home. At this point I would not recommend starting an antiepileptic medication. The patient can follow-up with his PCP after discharge. Recommend physical therapy and Occupational Therapy for any rehabilitation needs. Otherwise please contact me with any additional questions or concerns. (4) Chronic back pain: History of Present Illness Reason for Consultation: Seizure Requesting Physician: Dr. Abdiaziz MD Attending Physician: Dr. Dillon DO History of Present Illness A 60-year-old male with history of noninsulin-dependent diabetes, hypertension, and history of chronic alcohol use admitted after a episode of loss of consciousness and witnessed seizure. Patient is amnestic to the events yesterday and not quite sure why he is admitted to the hospital. There is no friends or family at bedside. History was largely obtained via the chart. He was brought in via EMS. He was found unresponsive in a cardiac arrest was called. Chest compressions were performed. Blood glucose was found to be in the 30s. He did receive dextrose in the field with improvement in blood glucose. He did have return of pulse as well as became responsive but was witnessed to have a seizure and somewhat agitated afterwards. He has no prior history of seizures or loss of consciousness per discussion with patient at bedside. He states he drinks 3-4 beers per day on average. He has never had alcohol withdrawal or does not feel the need to drink another beer or become tremulous with alcohol abstinence. He states he is currently not in pain and denies any complaints at this time. He is hopeful to go home. Upon admission he did undergo CT head noncontrast as well as a routine EEG. Neurology was consulted upon admission for witnessed seizure. Patient has not had any further seizures since admission. In terms of past medical history the patient does report that he is indeed a diabetic as well as takes oxycodone for chronic low back pain. Allergies Allergy/AdvReac Type Severity Reaction Status Date / Time No Known Allergies Allergy Unverified 05/23/21 08:47 Home Medications Medication Instructions Recorded Confirmed Type atorvastatin 10 mg tablet 10 mg PO DAILY 05/23/21 05/23/21 History duloxetine 30 mg capsule,delayed 30 mg PO DAILY 05/23/21 05/23/21 History release glipizide 10 mg tablet 10 mg PO BIDM 05/23/21 05/23/21 History lisinopril 10 mg tablet 10 mg PO DAILY 05/23/21 05/23/21 History metformin 1,000 mg tablet 1,000 mg PO BIDM 05/23/21 05/23/21 History metoprolol tartrate 50 mg tablet 50 mg PO BID 05/23/21 05/23/21 History oxycodone-acetaminophen 10 mg-325 1 tab PO BID 05/23/21 05/23/21 History mg tablet Patient History Medical History (Updated 05/23/21 @ 17:44 by Jailene Freed MD) Chronic back pain Diabetes mellitus HLD (hyperlipidemia) HTN (hypertension) Surgical History (Updated 05/23/21 @ 17:39 by Jailene Freed MD) History of hernia repair Family History (Updated 05/23/21 @ 17:40 by Jailene Freed MD) Other Family history non-contributory Social History Smoking Status: Never smoker Do You Dip or Chew Tobacco: Yes; Hx Alcohol Use: Yes Alcohol type: beer Hx Substance Use: No Preferred Language: Amharic Communication Ability: Effective 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 He is disoriented to his age. He appears stated age, no distress his head is atraumatic and normocephalic. His eyes are midline his conjunctiva are are normal. His neck is supple. Trachea is midline. Cardiac pulses are normal. Abdomen nontender. Respiratory rate is nonlabored. He has a normal mood and affect and no skin rash. He is disoriented to his age and believes he is 61 years old. Is oriented to the year as well as the town. He is following simple commands his eyes are midline extraocular muscles are intact facial sensation is is intact face is symmetric tongue is midline without abrasion. Shoulder shrug is intact. Palate is symmetric. He has no tremor or ataxia with [id number] testing muscle strength is 5 out of 5 in the upper and lower extremity sensation is intact to light touch she has no ankle clonus Laura sign is negative gait evaluation deferred. Results & Data ([facility]) Vital Signs (Past 12 Hours) Vital Signs Temp Pulse Pulse Resp BP BP Pulse Ox 05/24/21 12:00 36.5 C 82 18 99/75 L 95 05/24/21 09:30 98 H 05/24/21 07:32 36.9 C 88 16 128/63 96 05/24/21 04:07 36.8 C 78 18 146/85 H 95 Laboratory Results Alcohol level was 3.7. Urine drug screen was negative urinalysis was negative. No leukocytosis. Ammonia level was normal. Sodium was 135. Phosphorus was low at 1.8. Diagnostic Findings CT head noncontrast was limited due to patient motion although no acute intr acranial abnormality. No hemorrhage. No evidence of acute ischemic stroke. Routine EEG was a normal awake and drowsy EEG. MRI of the brain with and without contrast: No acute intracranial abnormality. No evidence of acute ischemic stroke. No mass or hydrocephalus.
[2021-05-24] MEDS ORDERED: oxyCODONE/ACETAMINOPHEN 10-325 TAB PO PRN (21:30)
[2021-05-25] MEDS: ENOXAPARIN INJ 40 MG/0.4 ML SYR SQ SCH ×2 (06:03→18:03)
[2021-05-25] MEDS: lisinopril 10 MG TAB PO SCH (08:09)
[2021-05-25] MEDS: METOPROLOL TARTRATE 50 MG TAB PO SCH ×2 (08:09→20:07)
[2021-05-25] MEDS: DULoxetine HCL 30 MG CAP PO SCH (08:10)
[2021-05-25] MEDS: THIAMINE HCL 100 MG TAB PO SCH (08:10)
[2021-05-25] MEDS: FOLIC ACID 1 MG TAB PO SCH (08:10)
[2021-05-25] MEDS: ATORVASTATIN 10 MG TAB PO SCH (08:10)
[2021-05-25] MEDS: INSULIN ASPART 100 UNITS/ML 3 ML PEN SC SCH ×4 (08:23→20:39)
[2021-05-25 08:54] LABS: BUN Creatinine Ratio 13.2 (10-20); Calcium 9.3 mg/dl (8.5-10.1); Creatinine Clr Calc Pharmacy 143.3 ml/min; Est GFR (African American) 123.4 ml/min; Est GFR (Non-African American) 106.5 ml/min; Potassium 3.7 mmol/L (3.5-5.1)
[2021-05-25 08:55] LABS: Phosphorus 2.3 mg/dl (2.5-4.9)
[2021-05-25] MEDS: LORazepam 2 MG/4 ML VIAL IV PRN (11:25)
[2021-05-25] MEDS ORDERED: GABAPENTIN 600 MG TAB PO SCH (12:00)
[2021-05-25] MEDS: LORazepam 3 MG/6 ML VIAL IV PRN (13:17)
[2021-05-25] MEDS ORDERED: LORazepam 4 MG/8 ML VIAL IV ONE (14:15)
[2021-05-25] MEDS ORDERED: STAT IV Infusion **Titration per Protocol STA ×2 (14:21→15:19)
[2021-05-25] MEDS: DEXMEDETOMIDINE HCL 200 MCG in SODIUM CHLORIDE 0.9% 48 ML IV SCH ×4 (14:43→22:48)
[2021-05-25] MEDS ORDERED: THIAMINE HCL 100 MG in SYRINGE 9 ML IV SCH (14:45)
--- NOTE | 2021-05-25 14:46 | Critical Care Consultation ---
Date of Consultation May 25, 2021 Assessment & Plan (1) Alcohol withdrawal: Olvin Pathak is a 60 yo male with PMHx significant for T2DM (A1c 5.6 on 05/23), HLD, HTN, chronic back pain (uses Oxycodone 10-325 BID), and alcohol use disorder who was admitted to [facility] on 05/23 for seizures initially thought to be due to hypoglycemia. He will be transferred to the ICU for close hemodynamic monitoring while treating for severe alcohol withdrawal/delirium tremens. Neuro - Patient is agitated and confused, likely due to severe alcohol withdrawal/delirium tremens. - started Ativan gtt, 1mg/hr - continue AWSS protocol with PRN Ativan - started Precedex gtt - transitioned to Thiamine/Folic acid IV, while NPO - maintain close monitoring of cognitive status Cardiac - HTN/HLD. - hold home Lisinopril, Lopressor and Ativan while NPO - ordered PRN Lopressor 5mg IV for SBP>180 Respiratory - Currently maintaining adequate oxygen saturation on room air. - monitor closely for signs of respiratory depression while on Ativan GI - - NPO for now, pending improvement in mental status RENAL/LYTES - No electrolyte derangements. - Replace lytes as needed. - No concerns at this time. ENDO - Presented to the hospital with hypoglycemia of 30 and lactic acidosis, which very quickly resolved with IVF boluses. Suspect this was in the context of acute alcohol intoxication/withdrawal and associated poor oral intake. - T2DM: ICU hyperglycemia protocol HEME - Stable H&H. ID - No concerns for infection at this point. Patient is afebrile, does not appear septic. CXR on admission clear. - Monitor fever curve. LINES/IV ACCESS - - PIVs intact. DVT PROPHYLAXIS - - Lovenox 40mg PO Q12H Thank you for allowing us to be part of this patient's care. Please refer to Dr. Martinez's documentation for any further recommendations. (2) Seizure: (3) Hypoglycemia: (4) Diabetes mellitus: (5) HTN (hypertension): (6) Chronic back pain: (7) Alcohol abuse: (8) Lactic acid acidosis: (9) DVT prophylaxis: Supervising Physician Co-Signing Physician Notes Patient seen and examined with the resident physician. Patient with evidence delirium tremens. Continue with Ativan drip at 1 mg an hour. Continue Preced ex. Continue Ativan as needed. Monitor for signs of seizure activity. N.p.o. Remain the ICU for close monitoring. Thank you for the consult. We will continue to follow along with you. History of Present Illness Reason for Consultation: alcohol withdrawal, severe agitation Requesting Physician: Dr. Carranza Attending Physician: Kim Carranza, DO History of Present Illness Olvin Pathak is a 60 yo male with PMHx significant for T2DM (A1c 5.6 on 05/23), HLD, HTN, chronic back pain (uses Oxycodone 10-325 BID), and alcohol use disorder who was admitted to [facility] on 05/23 for seizures initially thought to be due to hypoglycemia. Per EMS report, patient had one seizure x30 seconds before arrival that resolved without intervention. He had another possible seizure in the ED that lasted ~1 minute and resolved after Ativan x1. Otherwise the patient was largely hemodynamically stable on room air. Laboratory work-up was remarkable for BSG of 30 and lactate of 13.4. Ammonia WNL, UDS negative and BAL 3.7. CBC and CMP otherwise unremarkable. His lactic acidosis and hypoglycemia rapidly resolved with IVF boluses in the ED. Patient subsequently had negative head imaging/studies with unremarkable head CT, brain MRI and EEG. He has not had further seizures while hospitalized. This morning the patient became progressively more agitated and confused with concern for severe alcohol withdrawal - he received Ativan 9mg IV from 11:00 to 14:00 today. We were subsequently consulted for ICU management of alcohol withdrawal. Further history obtained via conversation with the patient's daughter (Carla, ). Carla reports that the patient has been drinking heavily for "many years", although she does not know exactly how much. However she did say that she saw the patient recently drink four 12-ounce beers in the course of one hour without much change to baseline, and she suspects that he drinks much more than this. The patient lives with his friend who is also a heavy drinker. Unable to obtain meaningful history from the patient as he is not following commands, is only A+O to name, and is responding to internal stimuli. Allergies Allergy/AdvReac Type Severity Reaction Status Date / Time No Known Allergies Allergy Unverified 05/23/21 08:47 Home Medications Medication Instructions Recorded Confirmed Type atorvastatin 10 mg tablet 10 mg PO DAILY 05/23/21 05/23/21 History duloxetine 30 mg capsule,delayed 30 mg PO DAILY 05/23/21 05/23/21 History release glipizide 10 mg tablet 10 mg PO BIDM 05/23/21 05/23/21 History lisinopril 10 mg tablet 10 mg PO DAILY 05/23/21 05/23/21 History metformin 1,000 mg tablet 1,000 mg PO BIDM 05/23/21 05/23/21 History metoprolol tartrate 50 mg tablet 50 mg PO BID 05/23/21 05/23/21 History oxycodone-acetaminophen 10 mg-325 1 tab PO BID 05/23/21 05/23/21 History mg tablet Patient History Medical History (Updated 05/24/21 @ 21:31 by Kim Carranza DO) Chronic back pain Diabetes mellitus HLD (hyperlipidemia) HTN (hypertension) Surgical History (Updated 05/23/21 @ 17:39 by Jailene Freed MD) History of hernia repair Family History (Updated 05/23/21 @ 17:40 by Jailene Freed MD) Other Family history non-contributory Social History Smoking Status: Never smoker Do You Dip or Chew Tobacco: Yes; Hx Alcohol Use: Yes Alcohol type: beer Hx Substance Use: No Preferred Language: Sudanese Communication Ability: Effective Teletypewriter Installer Required: No Beliefs That Will Affect Care: None Current Living Situation: Family Current Living Situation Comment: lives with cousin How many Children do You have: 2 Other Information That Helps Us Care for You: No Feels Safe at Home: Yes Safety Concerns: Feels Safe At This Time Assistive Devices: None Assistive Devices Comment: contacts in, patient reported it is okay to leave them in Review of Systems Review of Systems: Unobtainable due to cognitive status Physical Exam Physical Exam: General: Patient is occasionally log-rolling in bed, is A+O to name only, mostly does not follow commands, is responding to internal stimuli and grabbing at the air. However he is awake/alert. HEENT: Atraumatic, normocephalic. Pulm: CTAB A&P. -wheezes, -rales, -rhonchi. Symmetrical chest rise. No increase work of breathing. No respiratory distress. Cardiac: RRR, -mrg. Radial pulses intact and symmetrical. No LE edema. Abdominal: soft, non-tender, non-distended, BS x 4 Skin: warm, dry, no rash Psych: patient is agitated, endorses visual hallucinations and appears to be res ponding to internal stimuli Neuro: no tremor appreciated Results & Data Results & Data ([facility]) Vital Signs (Past 12 Hours) Vital Signs Temp Pulse Resp BP BP Pulse Ox 05/25/21 11:35 37.1 C 69 20 156/80 H 96 05/25/21 07:55 36.6 C 69 18 161/85 H 96 05/25/21 03:34 36.7 C 67 18 143/79 H 98 Resident Activity Tracking Resident Involvement: Resident Care Provided Care Provided: Adult Hospital Medicine (1) Diabetes mellitus Diabetes mellitus complication status: without complication Diabetes mellitus superintendent terminal insulin use: without longterm use Diabetes mellitus type: type 2 Q ualified Code(s): E11.9 - Type 2 diabetes mellitus without complications (2) Alcohol withdrawal Complication of substance-induced condition: with unspecified complication Qualified Code(s): F10.239 - Alcohol dependence with withdrawal, unspecified
[2021-05-25] MEDS ORDERED: METOPROLOL TARTRATE 1 MG/ML VIAL IV PRN (15:15)
[2021-05-25 15:26] LABS: Basophils # (auto) 0.03 K/uL (0-0.2); Basophils % (auto) 0.3 %; Eosinophils # (auto) 0.01 K/uL (0-0.5); Eosinophils % (auto) 0.1 %; Hemoglobin 13.5 g/dL (14.0-18.0); Immature Granulocytes # (auto) 0.02 K/uL (0.00-0.02); Immature Granulocytes % (auto) 0.2 %; Lymphocytes # (auto) 2.01 K/uL (1.2-3.4); Lymphocytes % (auto) 17.9 %; Mean Corpuscular Hemoglobin 29.9 pg (25-34); Mean Corpuscular Hgb Conc 34.6 g/dL (32-36); Mean Corpuscular Volume 86.3 fL (80-100); Mean Platelet Volume 8.6 fL (7.4-10.4); Monocytes # (auto) 0.79 K/uL (0.11-0.59); Monocytes % (auto) 7.1 %; Neutrophils # (auto) 8.34 K/uL (1.4-6.5); Neutrophils % (auto) 74.4 %; Platelet Count 235 K/uL (130-400); RDW Coefficient of Variation 12.5 % (11.5-14.5); RDW Standard Deviation 39.6 fL (36.4-46.3); Red Blood Count 4.52 M/uL (4.7-6.1)
[2021-05-25] MEDS: FOLIC ACID 1 MG in SYRINGE 9.8 ML IV SCH (15:38)
[2021-05-25 15:45] LABS: Albumin Level 3.1 gm/dl (3.4-5.0); BUN Creatinine Ratio 11.8 (10-20); Calcium 9.1 mg/dl (8.5-10.1); Est GFR (African American) 119.7 ml/min; Est GFR (Non-African American) 103.3 ml/min; Magnesium 2.2 mg/dl (1.8-2.4); Potassium 3.8 mmol/L (3.5-5.1)
[2021-05-25 15:48] LABS: Albumin Globulin Ratio 0.7 (0.9-2); Bilirubin,Total 0.7 mg/dl (0.2-1); Globulin 4.5 gm/dl (2.5-4.0); Phosphorus 2.4 mg/dl (2.5-4.9); Total Protein 7.6 gm/dl (6.4-8.2)
[2021-05-25] MEDS ORDERED: LORazepam 50 MG in D5W 250ML IN *POLYOLEFIN BAG* 25 ML IV SCH (16:00)
[2021-05-25] MEDS ORDERED: ICU PROTOCOL FOR HYPERGLYCEMIA PRN (16:00)
--- NOTE | 2021-05-25 16:41 | Hospitalist Progress Note ---
Date of Service May 25, 2021 Assessment & Plan (1) Alcohol withdrawal: Plan: Delirium presented today-required approx 10mg Ativan in the morning. Transferred to ICU and placed on Precedex infusion. He was much more comfortable in the ICU on re-evaluation. Updated his daughter by phone. (2) Seizure: Plan: Hypoglycemic induced seizure, no antiepileptic drug therapy recommended by neurology at this time. Maintain euglycemia with plan to discontinue glipizide at discharge and decrease level of Metformin at discharge with close follow-up with primary care. Replete electrolytes as needed. Discharge to home when alcohol withdrawal clears. No driving for 6 months. (3) Hypoglycemia: Plan: Hypoglycemia resolved off glipizide. Plan as above. (4) Alcohol abuse: Plan: today reports drinking at least 12 beers per day. . (5) Diabetes mellitus: Plan: A1c is 5.4, likely reflecting episodes of low blood sugar on average in the past 3 months. This underscores the need to de-escalate his therapy. 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 Modify lifestyle to fit need. (6) HTN (hypertension): Plan: BP around goal, continue home dose of lisinopril. (7) Chronic back pain: Plan: Narcotic dependent, has been off of this since admission because of fatigue and lethargy. Will restart as needed. May contribute to withdrawal state. (8) DVT prophylaxis: Plan: Lovenox Full code Disposition-to ICU. Kim Carranza DO [facility] Hospitalist Admission and Anticipated Discharge Date Admission Date: May 23, 2021 Subjective 60-year-old man with diabetes on Metformin and glipizide who had a new onset seizure that was witnessed. He was documented to have an hypoglycemia with blood sugar in the 30s. He has no history of seizures in the past. MRI of the brain with contrast was normal. Work-up also included a normal routine EEG. His lab work did not reveal any signs of infection. He did have some low phosphorus which was replaced. Today he is not answering questions clearly and seems to not understand what is going on. Beginning in late morning he began qualifying for Ativan per nursing AWSS protocol. He became combative and after 7mg IV Ativan, was transferred to the ICU for a Precedex infusion. On re- evaluation in the ICU he was sleeping comfortably. Daughter updated by phone regarding events. Review of Systems Review of Systems: Pt was altered and was not able to accurately perform ROS. Physical Exam Physical Exam: CONSTITUTIONAL: WNWD, vitals above, generally altered, combative, delirious EYES: normal conjunctivae, no scleral icterus ENT: external ear and nose normal, poor dentition RESPIRATORY: clear to auscultation bilaterally, no crackles, rales or wheezes, normal respiratory effort CARDIOVASCULAR: regular rate and rhythm, S1 and 2 heard without murmurs, gallops or rubs, no JVD, no peripheral edema GASTROINTESTINAL: soft, nontender, nondistended, no guarding. MUSCULOSKELETAL: strength 5/5 throughout, head is normocephalic and atraumatic SKIN: warm and dry NEUROLOGIC: awake, delirious, initially was able to converse although seemed to have some difficulty comprehending the conversation, second evaluation revealed a combative and agitated man in full delirium. Results & Data Results & Data ([facility]) Vital Signs (Past 12 Hours) Vital Signs Temp Pulse Pulse Resp BP BP BP 05/25/21 16:31 78 17 05/25/21 16:02 37.2 C 73 24 156/87 H 05/25/21 15:32 81 27 H 147/79 H 05/25/21 15:04 82 26 H 121/90 05/25/21 14:32 84 28 H 139/92 05/25/21 14:30 37.0 C 96 H 22 139/96 05/25/21 11:35 37.1 C 69 20 156/80 H 05/25/21 07:55 36.6 C 69 18 161/85 H Pulse Ox 05/25/21 16:31 97 05/25/21 16:02 95 05/25/21 15:32 95 05/25/21 15:04 05/25/21 14:32 97 05/25/21 14:30 97 05/25/21 11:35 96 05/25/21 07:55 96 Laboratory Results Short CBC 05/25/21 Range/Units 15:03 WBC 11.20 H (4.8-10.8) K/uL Hgb 13.5 L (14.0-18.0) g/dL Hct 39.0 L (42-52) % Plt Count 235 (130-400) K/uL BMP 05/25/21 05/25/21 07:56 15:03 Sodium 136 135 L Potassium 3.7 3.8 Chloride 104 103 Carbon Dioxide 24 26 BUN 9 8 Creatinine 0.65 0.70 Glucose 140 H 157 H Calcium 9.3 9.1 Liver Function 05/25/21 Range/Units 15:03 Total Bilirubin 0.7 (0.2-1) mg/dl AST 12 L (15-37) U/L ALT 19 (12-78) U/L Alkaline Phosphatase 98 (45-117) U/L Albumin 3.1 L (3.4-5.0) gm/dl Medications Administered Current Inpatient Medications Atorvastatin Calcium (Atorvastatin 10 Mg Tab) 10 mg PO DAILY SHAILESH Stop: 06/23/21 08:59 Last Admin: 05/25/21 08:10 Dose: 10 mg Documented by: Dextrose (Dextrose 50% 50 Ml Syringe) 25 - 50 ml IV UD PRN; Protocol PRN Reason: Hypoglycemia Protocol Stop: 06/22/21 12:03 Last Admin: 05/23/21 15:01 Dose: 25 ml Documented by: Duloxetine HCl (Duloxetine Hcl 30 Mg Cap) 30 mg PO DAILY SHAILESH Stop: 06/23/21 08:59 Last Admin: 05/25/21 08:10 Dose: 30 mg Documented by: Enoxaparin Sodium (Enoxaparin Inj 40 Mg/0.4 Ml Syr) 40 mg SQ Q12H SHAILESH Stop: 06/22/21 18:29 Last Admin: 05/25/21 06:03 Dose: 40 mg Documented by: Glucagon (Glucagon For Inj 1 Mg Vial) 1 mg SQ UD PRN; Protocol PRN Reason: Hypoglycemia Protocol Stop: 06/22/21 12:03 Glucose (Glucose 10 Tabs/Tube) 4 - 8 tabs PO UD PRN; Protocol PRN Reason: Hypoglycemia Protocol Stop: 06/22/21 12:03 Glucose (Glucose 40% Gel 15 Gm Tube) 15 - 30 gm PO UD PRN; Protocol PRN Reason: Hypoglycemia Protocol Stop: 06/22/21 12:03 Lorazepam (Ativan) 1 mg in 2 mls @ 2 mls/min IV UD PRN; Protocol PRN Reason: EtOH Withdrawl AWSS Score 6,7 Stop: 06/22/21 11:48 Lorazepam (Ativan) 2 mg in 4 mls @ 4 mls/min IV UD PRN; Protocol PRN Reason: EtOH Withdrawl AWSS Score 8,9 Stop: 06/22/21 11:48 Last Admin: 05/25/21 11:25 Dose: 4 mls/min Documented by: Lorazepam (Ativan) 3 mg in 6 mls @ 4 mls/min IV ONCE PRN; Protocol PRN Reason: EtOH Withdrawl AWSS Score >=10 Stop: 06/22/21 11:48 Last Admin: 05/25/21 13:17 Dose: 4 mls/min Documented by: Dexmedetomidine HCl 200 mcg/ (Sodium Chloride) 50 mls @ 12.613 mls/hr IV .Q3H58M [facility]; Protocol Stop: 05/29/21 14:34 Last Titration: 05/25/21 16:17 Dose: 0.5 mcg/kg/hr, 12.6 mls/hr Documented by: Folic Acid 1 mg/ Syringe 10 mls @ 5 mls/min IV QAM [facility] Stop: 06/24/21 14:44 Last Admin: 05/25/21 15:38 Dose: 5 mls/min Documented by: Lorazepam 50 mg/ Dextrose 50 mls @ 1 mls/hr IV .Q24H [facility]; Protocol Stop: 06/24/21 15:59 Last Admin: 05/25/21 15:58 Dose: 1 mg/hr, 1 mls/hr Documented by: Thiamine HCl 400 mg/ Sodium (Chloride) 104 mls @ 208 mls/hr IV Q8H [facility] Stop: 05/28/21 16:59 Insulin Aspart (Insulin Aspart 100 Units/Ml 3 Ml Pen) 0 units SC ACHS [facility] Stop: 06/22/21 16:29 Last Admin: 05/25/21 16:06 Dose: Not Given Documented by: Lisinopril (Lisinopril 10 Mg Tab) 10 mg PO DAILY [facility] Stop: 06/23/21 08:59 Last Admin: 05/25/21 08:09 Dose: 10 mg Documented by: Metoprolol Tartrate (Metoprolol Tartrate 50 Mg Tab) 50 mg PO BID [facility] Stop: 06/22/21 20:59 Last Admin: 05/25/21 08:09 Dose: 50 mg Documented by: Metoprolol Tartrate (Metoprolol Tartrate 1 Mg/Ml Vial) 5 mg IV Q6 PRN PRN Reason: SBP >180 Stop: 06/24/21 17:59 Miscellaneous (Carbohydrates For Hypoglycemia ) 15 - 30 gm PO UD PRN PRN Reason: Hypoglycemia Protocol Stop: 06/22/21 12:03 Miscellaneous (Icu Protocol For Hyperglycemia) 1 ea N/A UD PRN PRN Reason: Hyperglycemia Protocol Stop: 05/27/21 15:59 Oxycodone/Acetaminophen (Oxycodone/Acetaminophen 10-325 Tab) 1 tab PO BID PRN PRN Reason: Pain Stop: 06/07/21 21:29 (1) Diabetes mellitus Diabetes mellitus complication status: without complication Diabetes mellitus jail insulin use: without jail use Diabetes mellitus type: type 2 Qualified Code(s): E11.9 - Type 2 diabetes mellitus without complications (2) Alcohol withdrawal Complication of substance-induced condition: with unspecified complication Qualified Code(s): F10.239 - Alcohol dependence with withdrawal, unspecified
--- NOTE | 2021-05-25 17:37 | Billing Data ---
Date of Service May 25, 2021 Coding Level of Care Code 58877 Initial Inpt Care Lvl 3
[2021-05-25] MEDS: THIAMINE HCL IV SCH (18:03)
[2021-05-25] MEDS: SODIUM CHLORIDE 0.9% IV SCH (18:03)
[2021-05-26] MEDS: DEXMEDETOMIDINE HCL 200 MCG in SODIUM CHLORIDE 0.9% 48 ML IV SCH ×15 (00:34→20:09)
[2021-05-26] MEDS: SODIUM CHLORIDE 0.9% IV SCH ×3 (00:35→17:34)
[2021-05-26] MEDS: THIAMINE HCL IV SCH ×3 (00:35→17:34)
[2021-05-26 05:05] LABS: Basophils # (auto) 0.03 K/uL (0-0.2); Basophils % (auto) 0.4 %; Eosinophils # (auto) 0.02 K/uL (0-0.5); Eosinophils % (auto) 0.2 %; Hematocrit (blood only) 41.3 % (42-52); Hemoglobin 14.1 g/dL (14.0-18.0); Immature Granulocytes # (auto) 0.02 K/uL (0.00-0.02); Immature Granulocytes % (auto) 0.2 %; Lymphocytes # (auto) 1.63 K/uL (1.2-3.4); Lymphocytes % (auto) 19.8 %; Mean Corpuscular Hemoglobin 30.1 pg (25-34); Mean Corpuscular Hgb Conc 34.1 g/dL (32-36); Mean Corpuscular Volume 88.2 fL (80-100); Mean Platelet Volume 8.7 fL (7.4-10.4); Monocytes # (auto) 0.64 K/uL (0.11-0.59); Monocytes % (auto) 7.8 %; Neutrophils # (auto) 5.88 K/uL (1.4-6.5); Neutrophils % (auto) 71.6 %; Platelet Count 226 K/uL (130-400); RDW Coefficient of Variation 12.6 % (11.5-14.5); RDW Standard Deviation 40.5 fL (36.4-46.3); Red Blood Count 4.68 M/uL (4.7-6.1); White Blood Count 8.22 K/uL (4.8-10.8)
[2021-05-26 05:46] LABS: BUN Creatinine Ratio 13.4 (10-20); Creatinine Clr Calc Pharmacy 152.7 ml/min; Est GFR (African American) 126.7 ml/min; Est GFR (Non-African American) 109.3 ml/min; Magnesium 2.3 mg/dl (1.8-2.4); Potassium 4.4 mmol/L (3.5-5.1)
[2021-05-26 05:47] LABS: Phosphorus 3.8 mg/dl (2.5-4.9)
[2021-05-26] MEDS: ENOXAPARIN INJ 40 MG/0.4 ML SYR SQ SCH (06:02)
[2021-05-26] MEDS ORDERED: Nursing to Pharmacy Communication SCH (08:30)
[2021-05-26] MEDS: FOLIC ACID 1 MG in SYRINGE 9.8 ML IV SCH (08:35)
[2021-05-26] MEDS: INSULIN ASPART 100 UNITS/ML 3 ML PEN SC SCH ×4 (08:45→17:41)
--- NOTE | 2021-05-26 09:26 | Critical Care Progress Note ---
Date of Service May 26, 2021 Assessment & Plan (1) Alcohol withdrawal: Plan: Olvin Pathak is a 60 yo male with PMHx significant for T2DM (A1c 5.6 on 05/23), HLD, HTN, chronic back pain (uses Oxycodone 10-325 BID), and alcohol use disorder who was admitted to [facility] on 05/23 for seizures initially thought to be due to hypoglycemia. He will be transferred to the ICU for close hemodynamic monitoring while treating for severe alcohol withdrawal/delirium tremens. Neuro - Patient is agitated and confused, likely due to severe alcohol withdrawal/delirium tremens. -We will discontinue Ativan infusion today. - continue AWSS protocol with PRN Ativan -Continue low-dose Precedex. -Continue IV thiamine and folic acid. - maintain close monitoring of cognitive status Cardiac - HTN/HLD. - hold home Lisinopril, Lopressor and Ativan while NPO -Bradycardia secondary to Precedex. Respiratory - - monitor closely for signs of respiratory depression while on Ativan GI - - NPO for now, pending improvement in mental status RENAL/LYTES - No electrolyte derangements. - Replace lytes as needed. - No concerns at this time. ENDO - Presented to the hospital with hypoglycemia of 30 and lactic acidosis, which very quickly resolved with IVF boluses. Suspect this was in the context of acute alcohol intoxication/withdrawal and associated poor oral intake. - T2DM: ICU hyperglycemia protocol HEME - Stable H&H. ID - No concerns for infection at this point. Patient is afebrile, does not appear septic. CXR on admission clear. - Monitor fever curve. LINES/IV ACCESS - - PIVs intact. DVT PROPHYLAXIS - - Lovenox 40mg PO Q12H CRITICAL CARE TIME - I have personally spent 35 minutes of critical care time in the direct management of this patient. This is a life/limb threatening event. This includes time spent evaluating patient, direct bedside care, chart review, placing orders, interpretation of diagnostic studies, discussion with consultants, patient, and family members, as well as other required patient management activities. This time is exclusive of all separately billable procedures, and teaching time and separate from and in addition to any other critical care service time. (2) Seizure: (3) Hypoglycemia: (4) Diabetes mellitus: (5) HTN (hypertension): (6) Chronic back pain: (7) Alcohol abuse: (8) Lactic acid acidosis: (9) DVT prophylaxis: Admission and Anticipated Discharge Date Admission Date: May 23, 2021 Subjective Patient seen and examined this morning. He is very delirious. He is currently on Precedex infusion and 1 mg of Ativan per hour. He has been combative with staff at times cursing and yelling at staff. Review of systems is limited due to his altered mental status. Review of Systems Review of Systems: Unobtainable due to cognitive status Physical Exam Physical Exam: Constitutional: Patient is delirious and confused. At times combative. Eyes: Pupils are equal round and reactive to light. Conjunctivae are normal. Anicteric sclera. Ears nose, mouth and throat: Mallampati class 2. Normal posterior oropharynx. Uvula is midline. Neck: Trachea is midline. Visual inspection is normal. Respiratory: Diminished lung sounds bilaterally. Currently on 2 L nasal cannula. Cardiovascular: Regular rate and rhythm. No murmurs. No edema. Gastrointestinal: Normal bowel sounds, soft, nontender and nondistended. No hep atosplenomegaly noted. Musculoskeletal: No cyanosis. Patient is able to move all extremities. Strength is 5 out of 5 in the upper and lower extremities. Skin: No rashes, warm dry and intact. Neurologic: No obvious focal neurological deficits seen. Psychiatric: Completely disoriented. Results & Data Results & Data ([facility]) Vital Signs (Past 12 Hours) Vital Signs Temp Pulse Resp BP Pulse Ox 05/26/21 07:55 97.7 F 47 L 17 176/98 H 99 05/26/21 07:32 48 L 05/26/21 07:25 47 L 17 175/100 H 98 05/26/21 06:55 49 L 16 161/97 H 97 05/26/21 06:25 47 L 16 171/95 H 97 05/26/21 05:55 49 L 15 167/96 H 98 05/26/21 05:25 48 L 13 170/95 H 97 05/26/21 04:25 98.6 F 48 L 14 150/90 H 96 05/26/21 03:26 46 L 15 156/90 H 98 05/26/21 02:25 48 L 13 154/89 H 98 05/26/21 01:25 52 L 16 144/87 H 95 05/26/21 00:25 47 L 15 148/91 H 98 05/25/21 23:25 48 L 16 139/87 98 05/25/21 22:25 51 L 17 142/89 H 97 05/25/21 21:25 53 L 16 132/80 98 Vital signs, labs and imaging personally reviewed. Coding Level of Care Code Critical Care 1st 30-74 mins Diagnoses Alcohol withdrawal F10.239 Complication of substance-induced condition: with unspecified complication Seizure R56.9 Hypoglycemia E16.2 Diabetes mellitus E11.9 Diabetes mellitus type: type 2 Diabetes mellitus correction insulin use: without oil heaterman use Diabetes mellitus complication status: without complication HTN (hypertension) I10 Chronic back pain M54.9; G89.29 Alcohol abuse F10.10 Lactic acid acidosis E87.2 DVT prophylaxis Z29.9 Time Spent (min) 35 (1) Alcohol withdrawal Complication of substance-induced condition: with unspecified complication Qualified Code(s): F10.239 - Alcohol dependence with withdrawal, unspecified (2) Diabetes mellitus Diabetes mellitus type: type 2 Diabetes mellitus oil heaterman insulin use: without oil heaterman use Diabetes mellitus complication status: without complication Qualified Code(s): E11.9 - Type 2 diabetes mellitus without complications
[2021-05-26] MEDS ORDERED: hydrALAZINE HCL 20 MG/ML VIAL IV STA (09:31)
[2021-05-26] MEDS: ATORVASTATIN 10 MG TAB PO SCH (09:51)
[2021-05-26] MEDS: DULoxetine HCL 30 MG CAP PO SCH (09:51)
[2021-05-26] MEDS: METOPROLOL TARTRATE 50 MG TAB PO SCH ×2 (09:51→20:46)
[2021-05-26] MEDS: lisinopril 10 MG TAB PO SCH (09:51)
[2021-05-26] MEDS: LORazepam 1 MG/2 ML VIAL IV SCH ×3 (11:56→20:46)
--- NOTE | 2021-05-26 18:27 | Hospitalist Progress Note ---
Date of Service May 26, 2021 Assessment & Plan (1) Alcohol withdrawal: (2) Seizure: (3) Hypoglycemia: (4) Alcohol abuse: Plan: 60-year-old male with PMH of HTN, HLD, DM type II, chronic back pain on chronic oxycodone brought in by ambulance 05/23 after he was found unresponsive and per EMS his glucose was 30 and was given dextrose. Per EMS, patient also had possible seizure [last for 30 seconds] but did not get any medication. He had another possible seizure lasted for 1 minute while in ER. He is being managed with the following: #. Alcohol withdrawal History of alcohol abuse, drinks at least 12 beers per day. Patient currently being managed with Precedex drip in the ICU & is drowsy Currently on AWSS protocol with as needed Ativan and low-dose Precedex Continue with IV thiamine and folic acid Continue to monitor in ICU care #. Seizure Likely secondary to hypoglycemia Neurology on board: No history of prior seizures, normal routine EEG as well as MRI brain with no evidence of intracranial abnormality. Does not recommend antiepileptics at this point. Follow-up with PCP after discharge. Recommends PT/OT. Continue to monitor #. Hypoglycemia: Hypoglycemia resolved off glipizide. A1c 5.4 -we can de-escalate his antidiabetics; patient recently seated work schedule, working nights shifts and is likely eating less. Modify lifestyle to feet need. Continue with sliding scale Plan to stop glipizide upon discharge. #. Chronic medical conditions: Hypertension/chronic back pain Continue with home medication Expect to be bradycardic and hypotensive with Precedex drip, hold antihypertensive as needed #. DVT prophylaxis: Lovenox Full code Disposition-continue with ICU care. Admission and Anticipated Discharge Date Admission Date: May 23, 2021 Subjective Patient was lying in bed, on 2 L nasal cannula oxygen, drowsy from Precedex drip, difficult to arouse. ROS N/A. Physical Exam Physical Exam: GENERAL: NAD, drowsy, on 2 L nasal cannula oxygen HEENT: No pallor, no icterus. Pupils equal, round and reactive to light. Oral mucosa moist. NECK: No JVD, no neck masses. HEART: S1 and S2 heard. Regular rate and rhythm. No murmur, no gallop. RESPIRATORY SYSTEM: Normal AP diameter. No accessory muscle use. No wheezing, no crackles. ABDOMEN: Soft, bowel sounds present, does not seem to be tender , no distention. CENTRAL NERVOUS SYSTEM: No facial droop. Moves extremities. Unable to cooperate. EXTREMITIES: No edema, no erythema seen. Results & Data Results & Data ([facility]) Vital Signs (Past 12 Hours) Vital Signs Temp Pulse Pulse Resp BP BP Pulse Ox 05/26/21 16:25 67 21 141/85 H 96 05/26/21 16:00 37.4 C 65 20 141/85 H 96 05/26/21 15:55 66 20 142/86 H 96 05/26/21 15:25 66 23 132/79 97 05/26/21 14:55 65 21 135/82 96 05/26/21 14:25 65 20 137/80 97 05/26/21 13:55 37.4 C 64 19 140/79 97 05/26/21 13:25 64 19 146/84 H 98 05/26/21 12:55 62 19 142/91 H 98 05/26/21 12:25 61 20 151/83 H 98 05/26/21 11:55 60 19 157/87 H 99 05/26/21 11:25 61 21 154/88 H 98 05/26/21 11:00 36.8 C 60 19 154/88 H 98 05/26/21 10:55 61 22 161/88 H 99 05/26/21 10:25 62 19 164/92 H 98 05/26/21 09:55 60 18 142/82 H 99 05/26/21 09:25 51 L 17 194/98 H 100 05/26/21 08:55 52 L 17 168/97 H 99 05/26/21 08:25 47 L 17 184/99 H 99 05/26/21 07:55 36.5 C 47 L 17 176/98 H 99 05/26/21 07:32 48 L 05/26/21 07:25 47 L 17 175/100 H 98 05/26/21 06:55 49 L 16 161/97 H 97 05/26/21 06:25 47 L 16 171/95 H 97 (1) Alcohol withdrawal Complication of substance-induced condition: with unspecified complication Qualified Code(s): F10.239 - Alcohol dependence with withdrawal, unspecified
[2021-05-26] MEDS ORDERED: GABAPENTIN 600 MG TAB PO SCH (23:45)
[2021-05-27] MEDS: INSULIN ASPART 100 UNITS/ML 3 ML PEN SC SCH ×5 (00:06→20:40)
[2021-05-27] MEDS: LORazepam 1 MG/2 ML VIAL IV SCH ×6 (00:06→20:45)
[2021-05-27] MEDS: DEXMEDETOMIDINE HCL 200 MCG in SODIUM CHLORIDE 0.9% 48 ML IV SCH ×4 (00:06→06:17)
[2021-05-27] MEDS: SODIUM CHLORIDE 0.9% IV SCH (00:08)
[2021-05-27] MEDS: THIAMINE HCL IV SCH (00:08)
[2021-05-27 05:16] LABS: Basophils # (auto) 0.03 K/uL (0-0.2); Basophils % (auto) 0.3 %; Eosinophils # (auto) 0.01 K/uL (0-0.5); Eosinophils % (auto) 0.1 %; Hematocrit (blood only) 42.2 % (42-52); Hemoglobin 14.5 g/dL (14.0-18.0); Immature Granulocytes # (auto) 0.02 K/uL (0.00-0.02); Immature Granulocytes % (auto) 0.2 %; Lymphocytes # (auto) 1.42 K/uL (1.2-3.4); Lymphocytes % (auto) 15.6 %; Mean Corpuscular Hemoglobin 29.7 pg (25-34); Mean Corpuscular Hgb Conc 34.4 g/dL (32-36); Mean Corpuscular Volume 86.3 fL (80-100); Mean Platelet Volume 8.4 fL (7.4-10.4); Monocytes # (auto) 0.73 K/uL (0.11-0.59); Neutrophils # (auto) 6.92 K/uL (1.4-6.5); Neutrophils % (auto) 75.8 %; Platelet Count 247 K/uL (130-400); RDW Coefficient of Variation 12.5 % (11.5-14.5); RDW Standard Deviation 39.7 fL (36.4-46.3); Red Blood Count 4.89 M/uL (4.7-6.1); White Blood Count 9.13 K/uL (4.8-10.8)
[2021-05-27 05:31] LABS: BUN Creatinine Ratio 19.2 (10-20); Creatinine Clr Calc Pharmacy 129.4 ml/min; Est GFR (African American) 118.3 ml/min; Est GFR (Non-African American) 102.1 ml/min; Potassium 3.8 mmol/L (3.5-5.1)
[2021-05-27 05:32] LABS: Phosphorus 3.9 mg/dl (2.5-4.9)
--- NOTE | 2021-05-27 08:07 | Critical Care Progress Note ---
Date of Service May 27, 2021 Assessment & Plan (1) Alcohol withdrawal: Plan: Olvin Pathak is a 60 yo male with PMHx significant for T2DM (A1c 5.6 on 05/23), HLD, HTN, chronic back pain (uses Oxycodone 10-325 BID), and alcohol use disorder who was admitted to [facility] on 05/23 for seizures initially thought to be due to hypoglycemia. Neuro - -Withdrawal is improving. Off Ativan and Precedex. - continue AWSS protocol with PRN Ativan -Switch to PO thiamine. Cardiac - HTN/HLD. - Will resume lisinopril and metoprolol. Respiratory - - No significant issues GI - - Advance diet as tolerated RENAL/LYTES - No electrolyte derangements. - Replace lytes as needed. - No concerns at this time. ENDO - Presented to the hospital with hypoglycemia of 30 and lactic acidosis, which very quickly resolved with IVF boluses. Suspect this was in the context of acute alcohol intoxication/withdrawal and associated poor oral intake. - T2DM: ICU hyperglycemia protocol HEME - Stable H&H. ID - No concerns for infection at this point. Patient is afebrile, does not appear septic. CXR on admission clear. - Monitor fever curve. LINES/IV ACCESS - - PIVs intact. DVT PROPHYLAXIS - - Lovenox 40mg daily Stable for down grade to PCU status. (2) Seizure: (3) Hypoglycemia: (4) Diabetes mellitus: (5) HTN (hypertension): (6) Chronic back pain: (7) Alcohol abuse: (8) Lactic acid acidosis: (9) DVT prophylaxis: Admission and Anticipated Discharge Date Admission Date: May 23, 2021 Subjective Patient seen and examined this morning. He is able to follow commands and answer some questions appropriately. He is off Ativan and Precedex drips. No significant events overnight. Review of Systems Review of Systems: Unobtainable due to cognitive status Physical Exam Physical Exam: Constitutional: Patient is alert and awake. Appears comfortable. Eyes: Pupils are equal round and reactive to light. Conjunctivae are normal. Anicteric sclera. Ears nose, mouth and throat: Mallampati class 2. Normal posterior oropharynx. Uvula is midline. Neck: Trachea is midline. Visual inspection is normal. Respiratory: Diminished lung sounds bilaterally. Cardiovascular: Regular rate and rhythm. No murmurs. No edema. Gastrointestinal: Normal bowel sounds, soft, nontender and nondistended. No hepatosplenomegaly noted. Musculoskeletal: No cyanosis. Patient is able to move all extremities. Strength is 5 out of 5 in the upper and lower extremities. Skin: No rashes, warm dry and intact. Neurologic: No obvious focal neurological deficits seen. Psychiatric: Alert and awake. Results & Data Results & Data ([facility]) Vital Signs (Past 12 Hours) Vital Signs Pulse Resp BP Pulse Ox 05/27/21 03:25 91 H 24 138/85 95 05/27/21 02:25 89 25 H 141/83 H 96 05/27/21 01:26 91 H 16 97 05/27/21 00:25 93 H 27 H 130/85 96 05/26/21 23:25 88 26 H 129/78 94 05/26/21 22:25 92 H 22 131/79 95 05/26/21 21:25 86 22 120/74 96 05/26/21 20:25 82 24 132/78 95 vital signs, labs and imaging reviewed Coding Level of Care Code 09173 Subseq Hosp Care Lvl 3 Diagnoses Alcohol withdrawal F10.239 Complication of substance-induced condition: with unspecified complication Seizure R56.9 Hypoglycemia E16.2 Diabetes mellitus E11.9 Diabetes mellitus complication status: without complication Diabetes mellitus long term care administrator insulin use: without shelter use Diabetes mellitus type: type 2 HTN (hypertension) I10 Chronic back pain M54.9; G89.29 Alcohol abuse F10.10 Lactic acid acidosis E87.2 DVT prophylaxis Z29.9 (1) Diabetes mellitus Diabetes mellitus complication status: without complication Diabetes mellitus shelter insulin use: without long term care administrator use Diabetes mellitus type: type 2 Qualified Code(s): E11.9 - Type 2 diabetes mellitus without complications (2) Alcohol withdrawal Complication of substance-induced condition: with unspecified complication Qualified Code(s): F10.239 - Alcohol dependence with withdrawal, unspecified
[2021-05-27] MEDS: ATORVASTATIN 10 MG TAB PO SCH (08:50)
[2021-05-27] MEDS: DULoxetine HCL 30 MG CAP PO SCH (08:51)
[2021-05-27] MEDS: METOPROLOL TARTRATE 50 MG TAB PO SCH ×4 (08:51→20:46)
[2021-05-27] MEDS: ENOXAPARIN INJ 40 MG/0.4 ML SYR SQ SCH (08:51)
[2021-05-27] MEDS: lisinopril 10 MG TAB PO SCH (08:52)
[2021-05-27] MEDS: THIAMINE HCL 100 MG TAB PO SCH (08:53)
[2021-05-27] MEDS: FOLIC ACID 1 MG in SYRINGE 9.8 ML IV SCH (08:57)
[2021-05-27] MEDS ORDERED: lisinopril 10 MG TAB PO SCH (09:00)
[2021-05-27] MEDS: LORazepam 2 MG/4 ML VIAL IV PRN (09:34)
[2021-05-27] MEDS ORDERED: LABETALOL HCL IV 5 MG/ML 20ML IV STA (09:47)
[2021-05-27] MEDS ORDERED: Nursing to Pharmacy Communication SCH (11:30)
--- NOTE | 2021-05-27 13:29 | Hospitalist Progress Note ---
Date of Service May 27, 2021 Assessment & Plan (1) Alcohol withdrawal: (2) Seizure: (3) Hypoglycemia: (4) Alcohol abuse: Plan: 60-year-old male with PMH of HTN, HLD, DM type II, chronic back pain on chronic oxycodone brought in by ambulance 05/23 after he was found unresponsive and per EMS his glucose was 30 and was given dextrose. Per EMS, patient also had possible seizure [last for 30 seconds] but did not get any medication. He had another possible seizure lasted for 1 minute while in ER. He is being managed with the following: #. Alcohol withdrawal History of alcohol abuse, drinks at least 12 beers per day. In ICU for need of Precedex drip, stopped 5 AM 05/27. Currently on AWSS protocol with as needed Ativan Continue with thiamine and folic acid Patient started to take p.o. intake Continue to monitor, if this is stable off of Precedex drip possible transfer to floors tomorrow. #. Seizure Likely secondary to hypoglycemia Neurology on board: No history of prior seizures, normal routine EEG as well as MRI brain with no evidence of intracranial abnormality. Does not recommend antiepileptics at this point. Follow-up with PCP after discharge. Recommends PT/OT. Continue to monitor #. Hypoglycemia: Hypoglycemia resolved off glipizide. A1c 5.4 -we can de-escalate his antidiabetics; patient recently seated work schedule, working nights shifts and is likely eating less. Modify lifestyle to feet need. Continue with sliding scale Plan to stop glipizide upon discharge. #. Chronic medical conditions: Hypertension/chronic back pain Continue with home medication Expect to be bradycardic and hypotensive with Precedex drip, hold antihypertensive as needed #. DVT prophylaxis: Lovenox We will get electrolytes on Saturday morning. Full code Disposition-continue with ICU care. Admission and Anticipated Discharge Date Admission Date: May 23, 2021 Subjective Patient was lying in bed, on 2 L nasal cannula oxygen, NAD, alert and oriented to person only. Patient denies any pain. Other review of symptoms are negative. Denies nausea/vomiting. Patient was eating at bedside. Per RN, he started to eat today morning, no bowel movement in last few days, Precedex was off around 5 AM today morning, patient received 3 mg of Ativan in the morning so far. Patient confused, alert, cooperative, looks better than yesterday. Physical Exam Physical Exam: GENERAL: Alert and oriented x1 [to person only]. NAD, on 2 L. HEENT: No pallor, no icterus. Pupils equal, round and reactive to light. Oral mucosa moist. NECK: No JVD, no neck masses. HEART: S1 and S2 heard. Regular rate and rhythm. No murmur, no gallop. RESPIRATORY SYSTEM: Normal AP diameter. No accessory muscle use. No wheezing, no crackles. ABDOMEN: Soft, bowel sounds present, nontender, no distention. CENTRAL NERVOUS SYSTEM: No facial droop. Speech is clear. Obeys simple commands. Moves extremities. EXTREMITIES: No edema, no erythema seen. Results & Data Results & Data ([facility]) Vital Signs (Past 12 Hours) Vital Signs Temp Pulse Pulse Resp BP BP Pulse Ox 05/27/21 12:25 98 H 25 H 150/92 H 100 05/27/21 11:55 36.9 C 106 H 26 H 146/90 H 100 05/27/21 11:25 113 H 23 140/85 100 05/27/21 11:00 36.8 C 112 H 15 140/85 100 05/27/21 10:55 109 H 17 142/91 H 100 05/27/21 10:25 110 H 23 163/92 H 100 05/27/21 09:55 121 H 21 184/91 H 100 05/27/21 09:25 129 H 23 183/118 H 99 05/27/21 08:55 112 H 25 H 178/109 H 96 05/27/21 08:25 103 H 26 H 163/97 H 98 05/27/21 07:55 36.9 C 103 H 23 168/97 H 97 05/27/21 07:26 109 H 16 111/96 96 05/27/21 06:55 100 H 26 H 158/89 H 95 05/27/21 06:25 98 H 28 H 124/76 95 05/27/21 05:55 94 H 25 H 161/92 H 95 05/27/21 05:25 89 25 H 162/94 H 95 05/27/21 04:56 93 H 26 H 136/81 95 05/27/21 04:25 100 H 21 138/91 97 05/27/21 03:55 92 H 29 H 137/81 95 05/27/21 03:25 91 H 24 138/85 95 05/27/21 02:25 89 25 H 141/83 H 96 05/27/21 01:26 91 H 16 97 (1) Alcohol withdrawal Complication of substance-induced condition: with unspecified complication Qualified Code(s): F10.239 - Alcohol dependence with withdrawal, unspecified
[2021-05-28] MEDS: LORazepam 1 MG/2 ML VIAL IV SCH ×2 (00:08→04:45)
[2021-05-28] MEDS: LORazepam 3 MG/6 ML VIAL IV PRN (03:07)
[2021-05-28] MEDS: INSULIN ASPART 100 UNITS/ML 3 ML PEN SC SCH ×4 (08:47→21:27)
[2021-05-28] MEDS: METOPROLOL TARTRATE 50 MG TAB PO SCH ×2 (08:49→21:27)
[2021-05-28] MEDS: ATORVASTATIN 10 MG TAB PO SCH (08:49)
[2021-05-28] MEDS: lisinopril 10 MG TAB PO SCH (08:49)
[2021-05-28] MEDS: THIAMINE HCL 100 MG TAB PO SCH (08:49)
[2021-05-28] MEDS: DULoxetine HCL 30 MG CAP PO SCH (08:50)
[2021-05-28] MEDS: hydroCHLOROthiazide 25 MG TAB PO SCH (08:50)
[2021-05-28] MEDS: ENOXAPARIN INJ 40 MG/0.4 ML SYR SQ SCH (08:51)
[2021-05-28] MEDS: FOLIC ACID 1 MG in SYRINGE 9.8 ML IV SCH (08:53)
[2021-05-28] MEDS: LORazepam 2 MG/4 ML VIAL IV PRN ×3 (09:50→17:28)
--- NOTE | 2021-05-28 13:10 | Hospitalist Progress Note ---
Date of Service May 28, 2021 Assessment & Plan (1) Alcohol withdrawal: (2) Seizure: (3) Hypoglycemia: (4) Alcohol abuse: Plan: 60-year-old male with PMH of HTN, HLD, DM type II, chronic back pain on chronic oxycodone brought in by ambulance 05/23 after he was found unresponsive and per EMS his glucose was 30 and was given dextrose. Per EMS, patient also had possible seizure [last for 30 seconds] but did not get any medication. He had another possible seizure lasted for 1 minute while in ER. He is being managed with the following: #. Alcohol withdrawal History of alcohol abuse, drinks at least 12 beers per day. Was in ICU for Precedex drip, off of ICU care 05/27 PM. Currently on AWSS protocol with as needed Ativan, DC scheduled Ativan Requiring more Ativan per RN, we will put in scheduled chlordiazepoxide to be tapered down to stop Patient clinically stable/slightly improving compared to yesterday. Continue with thiamine and folic acid Patient eating okay. Continue to monitor #. Seizure Likely secondary to hypoglycemia Neurology on board: No history of prior seizures, normal routine EEG as well as MRI brain with no evidence of intracranial abnormality. Does not recommend antiepileptics at this point. Follow-up with PCP after discharge. Recommends PT/OT. No new seizure events. Continue to monitor #. Hypoglycemia: Hypoglycemia resolved off glipizide. A1c 5.4 -we can de-escalate his antidiabetics; patient recently seated work schedule, working nights shifts and is likely eating less. Modify lifestyle to feet need. Continue with sliding scale Plan to stop glipizide upon discharge. #. Chronic medical conditions: Hypertension/chronic back pain Continue with home medication Expect to be bradycardic and hypotensive with Precedex drip, hold antihypertensive as needed #. DVT prophylaxis: Lovenox Follow-up electrolytes on Saturday morning. Full code Disposition-continue with PCU care. PT recommending inpatient acute rehab upon discharge. Admission and Anticipated Discharge Date Admission Date: May 23, 2021 Subjective Patient was lying in bed, on room air, minimal distress, alert and oriented x2 [not to time]. Patient denies any pain. Other review of symptoms are negative. Patient had one episode of vomiting at bedside exam, he had recently eaten his breakfast, per patient he has similar vomiting when he takes milk/dairy products. Avoid dairy products in his meals. Per RN, he is requiring more Ativan today and doing fairly okay. Physical Exam Physical Exam: GENERAL: Alert and oriented x2 [not to time]. NAD, on room air, lethargic. HEENT: No pallor, no icterus. Pupils equal, round and reactive to light. Oral mucosa moist. NECK: No JVD, no neck masses. HEART: S1 and S2 heard. Regular rate and rhythm. No murmur, no gallop. RESPIRATORY SYSTEM: Normal AP diameter. No accessory muscle use. No wheezing, no crackles. ABDOMEN: Soft, bowel sounds present, nontender, no distention. CENTRAL NERVOUS SYSTEM: No facial droop. Speech is clear. Obeys simple commands. Moves extremities. EXTREMITIES: No edema, no erythema seen. Results & Data Results & Data ([facility]) Vital Signs (Past 12 Hours) Vital Signs Temp Pulse Resp BP Pulse Ox 05/28/21 08:00 36.8 C 115 H 22 157/103 H 98 (1) Alcohol withdrawal Complication of substance-induced condition: with unspecified complication Qualified Code(s): F10.239 - Alcohol dependence with withdrawal, unspecified
[2021-05-28] MEDS: LORazepam 1 MG/2 ML VIAL IV PRN (21:28)
[2021-05-29] MEDS: LORazepam 1 MG/2 ML VIAL IV PRN (00:37)
[2021-05-29 06:09] LABS: BUN Creatinine Ratio 11.6 (10-20); Creatinine Clr Calc Pharmacy 143.9 ml/min; Est GFR (African American) 123.4 ml/min; Est GFR (Non-African American) 106.5 ml/min; Phosphorus 3.2 mg/dl (2.5-4.9); Potassium 3.3 mmol/L (3.5-5.1)
[2021-05-29] MEDS: ATORVASTATIN 10 MG TAB PO SCH (09:07)
[2021-05-29] MEDS: FOLIC ACID 1 MG in SYRINGE 9.8 ML IV SCH (09:07)
[2021-05-29] MEDS: ENOXAPARIN INJ 40 MG/0.4 ML SYR SQ SCH (09:08)
[2021-05-29] MEDS: lisinopril 10 MG TAB PO SCH (09:08)
[2021-05-29] MEDS: hydroCHLOROthiazide 25 MG TAB PO SCH (09:08)
[2021-05-29] MEDS: THIAMINE HCL 100 MG TAB PO SCH (09:08)
[2021-05-29] MEDS: METOPROLOL TARTRATE 50 MG TAB PO SCH ×2 (09:08→20:55)
[2021-05-29] MEDS: DULoxetine HCL 30 MG CAP PO SCH (09:09)
[2021-05-29] MEDS: INSULIN ASPART 100 UNITS/ML 3 ML PEN SC SCH ×4 (09:12→20:55)
[2021-05-29] MEDS ORDERED: POTASSIUM CHLORIDE CRTAB 20 MEQ TABCR PO STA (11:41)
--- NOTE | 2021-05-29 19:32 | Hospitalist Progress Note ---
Date of Service May 29, 2021 Assessment & Plan (1) Alcohol withdrawal: (2) Seizure: (3) Hypoglycemia: (4) Alcohol abuse: Plan: 60-year-old male with PMH of HTN, HLD, DM type II, chronic back pain on chronic oxycodone brought in by ambulance 05/23 after he was found unresponsive and per EMS his glucose was 30 and was given dextrose. Per EMS, patient also had possible seizure [last for 30 seconds] but did not get any medication. He had another possible seizure lasted for 1 minute while in ER. He is being managed with the following: #. Alcohol withdrawal History of alcohol abuse, drinks at least 12 beers per day. Was in ICU for Precedex drip, off of ICU care 05/27 PM. Currently on AWSS protocol with as needed Ativan, DC scheduled Ativan Requiring Lasix Ativan per RN, will taper down chlordiazepoxide as able Patient clinically stable/slightly improving compared to day by day Continue with thiamine and folic acid Patient eating okay. Moving bowels okay. Continue to monitor #. Seizure Likely secondary to hypoglycemia Neurology on board: No history of prior seizures, normal routine EEG as well as MRI brain with no evidence of intracranial abnormality. Does not recommend antiepileptics at this point. Follow-up with PCP after discharge. Recommends PT/OT. No new seizure events. Continue to monitor #. Hypoglycemia: Hypoglycemia resolved off glipizide. A1c 5.4 -we can de-escalate his antidiabetics; patient recently changed work schedule, working nights shifts and is likely eating less. Modify lifestyle to feet need. Continue with sliding scale Plan to stop glipizide upon discharge. #. Chronic medical conditions: Hypertension/chronic back pain Continue with home medication Hypertension under control #. DVT prophylaxis: Lovenox Follow-up electrolytes as needed Full code Disposition-continue with PCU care. PT recommending inpatient acute rehab upon discharge. It appears that it will be hard to convince patient for rehab. He insists on going home. 05/29 updated daughter Carla [[phone]] about his status and plan of care, she seems understanding and agreeable. Admission and Anticipated Discharge Date Admission Date: May 23, 2021 Subjective Patient was lying in bed, on room air, NAD, AOx3. Patient denies any pain. Other review of symptoms are negative. Per RN he is eating okay and is moving bowel. Also he is requiring less Ativan compared to yesterday. Per patient he nausea/vomiting when he takes milk/dairy products. Avoid dairy products in his meals. Physical Exam Physical Exam: GENERAL: Alert and oriented x3. NAD, on room air, still letharg ic but better than yesterday. HEENT: No pallor, no icterus. Pupils equal, round and reactive to light. Oral mucosa moist. NECK: No JVD, no neck masses. HEART: S1 and S2 heard. Regular rate and rhythm. No murmur, no gallop. RESPIRATORY SYSTEM: Normal AP diameter. No accessory muscle use. No wheezing, no crackles. ABDOMEN: Soft, bowel sounds present, nontender, no distention. CENTRAL NERVOUS SYSTEM: No facial droop. Speech is clear. Obeys simple commands. Moves extremities. EXTREMITIES: No edema, no erythema seen. Results & Data Results & Data ([facility]) Vital Signs (Past 12 Hours) Vital Signs Temp Pulse Pulse Resp BP Pulse Ox 05/29/21 16:00 74 05/29/21 15:46 37.0 C 75 18 132/80 97 05/29/21 12:07 36.7 C 86 18 149/84 H 94 05/29/21 08:00 37.3 C 93 H 14 141/86 H 94 (1) Alcohol withdrawal Complication of substance-induced condition: with unspecified complication Qualified Code(s): F10.239 - Alcohol dependence with withdrawal, unspecified
[2021-05-30 07:29] LABS: BUN Creatinine Ratio 17.8 (10-20); Calcium 9.5 mg/dl (8.5-10.1); Creatinine Clr Calc Pharmacy 108.3 ml/min; Est GFR (African American) 99.9 ml/min; Est GFR (Non-African American) 86.2 ml/min; Magnesium 2.3 mg/dl (1.8-2.4)
[2021-05-30] MEDS: INSULIN ASPART 100 UNITS/ML 3 ML PEN SC SCH ×4 (09:12→20:46)
[2021-05-30] MEDS: METOPROLOL TARTRATE 50 MG TAB PO SCH ×2 (09:13→20:45)
[2021-05-30] MEDS: lisinopril 10 MG TAB PO SCH (09:13)
[2021-05-30] MEDS: FOLIC ACID 1 MG in SYRINGE 9.8 ML IV SCH (09:13)
[2021-05-30] MEDS: ENOXAPARIN INJ 40 MG/0.4 ML SYR SQ SCH (09:13)
[2021-05-30] MEDS: THIAMINE HCL 100 MG TAB PO SCH (09:13)
[2021-05-30] MEDS: hydroCHLOROthiazide 25 MG TAB PO SCH (09:13)
[2021-05-30] MEDS: DULoxetine HCL 30 MG CAP PO SCH (09:13)
[2021-05-30] MEDS: ATORVASTATIN 10 MG TAB PO SCH (09:29)
--- NOTE | 2021-05-30 20:57 | Hospitalist Progress Note ---
Date of Service May 30, 2021 Assessment & Plan (1) Alcohol withdrawal: (2) Seizure: (3) Hypoglycemia: (4) Alcohol abuse: Plan: 60-year-old male with PMH of HTN, HLD, DM type II, chronic back pain on chronic oxycodone brought in by ambulance 05/23 after he was found unresponsive and per EMS his glucose was 30 and was given dextrose. Per EMS, patient also had possible seizure [last for 30 seconds] but did not get any medication. He had another possible seizure lasted for 1 minute while in ER. He is being managed with the following: #. Alcohol withdrawal History of alcohol abuse, drinks at least 12 beers per day. Was in ICU for Precedex drip, off of ICU care 05/27 PM. Currently on AWSS protocol with as needed Ativan, DC scheduled Ativan Requiring Less Ativan per RN, scheduled Librium stopped today Patient clinically improving. Continue with thiamine and folic acid Patient eating okay. Moving bowels okay. Plan to discharge to acute rehab as per PT/OT . Anticipate DC in 1-2 days. Continue to monitor #. Seizure Likely secondary to hypoglycemia Neurology on board: No history of prior seizures, normal routine EEG as well as MRI brain with no evidence of intracranial abnormality. Does not recommend antiepileptics at this point. Follow-up with PCP after discharge. Recommends PT/OT. No new seizure events. Continue to monitor #. Hypoglycemia: Hypoglycemia resolved off of glipizide. A1c 5.4 -we can de-escalate his antidiabetics; patient recently changed work schedule, working nights shifts and is likely eating less. Modify lifestyle to feet need. Continue with sliding scale Plan to stop glipizide upon discharge. Upon discharge, he will need the following (a/c welder tool and die): 1.) OneTouch Verio test strips - to check 1x/day. 2.) OneTouch Delica lancets 33 gauge - to check 1x/day. #. Chronic medical conditions: Hypertension/chronic back pain Continue with home medication Hypertension under control #. DVT prophylaxis: Lovenox Follow-up electrolytes as needed Full code Disposition-continue with PCU care. PT recommending inpatient acute rehab upon discharge. It appears that it will be hard to convince patient for rehab. He insists on going home. 05/29 updated daughter Carla [[phone]] about his status and plan of care, she seems understanding and agreeable. Admission and Anticipated Discharge Date Admission Date: May 23, 2021 Subjective Patient was sitting up in chair, on room air, NAD, AOx3. Patient denies any pain. Other review of symptoms are negative. Per RN he is eating okay and is moving bowel. Receive scheduled chlordiazepoxide will stop today. Continue to monitor him on as needed Ativan and stop Ativan gradually. Per patient he has nausea/vomiting when he takes milk/dairy products. Avoid dairy products in his meals. Physical Exam Physical Exam: GENERAL: Alert and oriented x3. NAD, on room air, more cooperative and alert today. HEENT: No pallor, no icterus. Pupils equal, round and reactive to light. Oral mucosa moist. NECK: No JVD, no neck masses. HEART: S1 and S2 heard. Regular rate and rhythm. No murmur, no gallop. RESPIRATORY SYSTEM: Normal AP diameter. No accessory muscle use. No wheezing, no crackles. ABDOMEN: Soft, bowel sounds present, nontender, no distention. CENTRAL NERVOUS SYSTEM: No facial droop. Speech is clear. Obeys simple commands. Moves extremities. EXTREMITIES: No edema, no erythema seen. Results & Data Results & Data ([facility]) Vital Signs (Past 12 Hours) Vital Signs Temp Pulse Pulse Resp BP Pulse Ox 05/30/21 19:55 37.2 C 92 H 18 117/72 96 05/30/21 15:25 74 05/30/21 15:15 36.9 C 75 18 131/74 97 05/30/21 12:52 36.8 C 85 18 105/71 95 (1) Alcohol withdrawal Complication of substance-induced condition: with unspecified complication Qualified Code(s): F10.239 - Alcohol dependence with withdrawal, unspecified
[2021-05-30] MEDS ORDERED: LANTUS PER UNIT CHARGE SQ SCH (21:00)
[2021-05-31 08:41] LABS: BUN Creatinine Ratio 19.9 (10-20); Calcium 9.5 mg/dl (8.5-10.1); Creatinine Clr Calc Pharmacy 116.7 ml/min; Est GFR (African American) 114.5 ml/min; Est GFR (Non-African American) 98.8 ml/min; Potassium 3.8 mmol/L (3.5-5.1)
[2021-05-31] MEDS: hydroCHLOROthiazide 25 MG TAB PO SCH (08:51)
[2021-05-31] MEDS: THIAMINE HCL 100 MG TAB PO SCH (08:52)
[2021-05-31] MEDS: METOPROLOL TARTRATE 50 MG TAB PO SCH ×2 (08:52→20:41)
[2021-05-31] MEDS: DULoxetine HCL 30 MG CAP PO SCH (08:52)
[2021-05-31] MEDS: lisinopril 10 MG TAB PO SCH (08:53)
[2021-05-31] MEDS: FOLIC ACID 1 MG in SYRINGE 9.8 ML IV SCH (08:53)
[2021-05-31] MEDS: ATORVASTATIN 10 MG TAB PO SCH (08:53)
[2021-05-31] MEDS: ENOXAPARIN INJ 40 MG/0.4 ML SYR SQ SCH (08:53)
[2021-05-31] MEDS: INSULIN ASPART 100 UNITS/ML 3 ML PEN SC SCH ×4 (08:55→20:42)
[2021-05-31] MEDS: INSULIN GLARGINE SOLOSTAR 100 UNITS/ML 3 ML PEN SQ SCH (10:24)
--- NOTE | 2021-05-31 18:36 | Hospitalist Progress Note ---
Date of Service May 31, 2021 Assessment & Plan (1) Alcohol withdrawal: (2) Seizure: (3) Hypoglycemia: (4) Alcohol abuse: Plan: 60-year-old male with PMH of HTN, HLD, DM type II, chronic back pain on chronic oxycodone brought in by ambulance 05/23 after he was found unresponsive and per EMS his glucose was 30 and was given dextrose. Per EMS, patient also had possible seizure [last for 30 seconds] but did not get any medication. He had another possible seizure lasted for 1 minute while in ER. He is being managed with the following: #. Alcohol withdrawal History of alcohol abuse, drinks at least 12 beers per day. Was in ICU for Precedex drip, off of ICU care 05/27 PM. Currently on AWSS protocol with as needed Ativan, DC scheduled Ativan Requiring Less Ativan per RN, scheduled Librium stopped today Patient clinically improving. Continue with thiamine and folic acid Patient eating okay. Moving bowels okay. Plan to discharge to acute rehab as per PT/OT . Anticipate DC in 1-2 days. Continue to monitor #. Seizure Likely secondary to hypoglycemia Neurology on board: No history of prior seizures, normal routine EEG as well as MRI brain with no evidence of intracranial abnormality. Does not recommend antiepileptics at this point. Follow-up with PCP after discharge. Recommends PT/OT. No new seizure events. Continue to monitor #. Hypoglycemia: Hypoglycemia resolved off of glipizide. A1c 5.4 -we can de-escalate his antidiabetics; patient recently changed work schedule, working nights shifts and is likely eating less. Modify lifestyle to feet need. Continue with sliding scale Plan to stop glipizide upon discharge. Upon discharge, he will need the following (a/c healthcare educator): 1.) OneTouch Verio test strips - to check 1x/day. 2.) OneTouch Delica lancets 33 gauge - to check 1x/day. #. Chronic medical conditions: Hypertension/chronic back pain Continue with home medication Hypertension under control #. DVT prophylaxis: Lovenox Follow-up electrolytes as needed Full code Disposition-continue with PCU care. PT recommending inpatient acute rehab upon discharge. It appears that it will be hard to convince patient for rehab. He insists on going home. 05/29 updated daughter Carla [[phone]] about his status and plan of care, she seems understanding and agreeable. Admission and Anticipated Discharge Date Admission Date: May 23, 2021 Subjective Pt was seen seen and examined for follow up alcohol withdrawal and hypoglycemia Lying in bed with no acute distress Pt said that he feels fine He is not too happy to go to rehab, but he is not safe to go home I spoke to daughter and provided with update over the phone Denies any chest pain, palpitation, dizziness and SOB Physical Exam Physical Exam: General- No acute distress Head- atraumatic Eyes- PERRL, EOMI, ENT- oropharynx clear Neck- supple, no JVD Lungs- clear to auscultation Heart- regular rhythm; no murmur Abdomen- normal bowel sounds, soft, nontender Extremities- no calf tenderness Neuro- alert, oriented x 3; PERRL, EOMI; no facial palsy; no dysarthria Skin- warm & dry Results & Data Results & Data ([facility]) Vital Signs (Past 12 Hours) Vital Signs Temp Pulse Pulse Resp BP Pulse Ox 05/31/21 15:07 36.7 C 72 20 115/71 94 05/31/21 14:58 71 05/31/21 11:15 36.8 C 102 H 19 112/70 95 05/31/21 07:18 36.9 C 76 20 117/71 95 05/31/21 07:00 71 (1) Alcohol withdrawal Complication of substance-induced condition: with unspecified complication Qualified Code(s): F10.239 - Alcohol dependence with withdrawal, unspecified
[2021-05-31] MEDS ORDERED: ACETAMINOPHEN 325 MG TAB PO PRN (22:14)
[2021-06-01] MEDS: METOPROLOL TARTRATE 50 MG TAB PO SCH (08:33)
[2021-06-01] MEDS: hydroCHLOROthiazide 25 MG TAB PO SCH (08:34)
[2021-06-01] MEDS: lisinopril 10 MG TAB PO SCH (08:35)
[2021-06-01] MEDS: ATORVASTATIN 10 MG TAB PO SCH (08:35)
[2021-06-01] MEDS: DULoxetine HCL 30 MG CAP PO SCH (08:35)
[2021-06-01] MEDS: THIAMINE HCL 100 MG TAB PO SCH (08:35)
[2021-06-01] MEDS: INSULIN GLARGINE SOLOSTAR 100 UNITS/ML 3 ML PEN SQ SCH (08:36)
[2021-06-01] MEDS: ENOXAPARIN INJ 40 MG/0.4 ML SYR SQ SCH (08:37)
[2021-06-01] MEDS: FOLIC ACID 1 MG in SYRINGE 9.8 ML IV SCH (08:37)
[2021-06-01] MEDS: INSULIN ASPART 100 UNITS/ML 3 ML PEN SC SCH ×2 (08:39→12:11)
[2021-06-01 11:54] LABS: BUN Creatinine Ratio 18.8 (10-20); Creatinine Clr Calc Pharmacy 93.7 ml/min; Est GFR (African American) 98.6 ml/min; Est GFR (Non-African American) 85.1 ml/min; Potassium 3.8 mmol/L (3.5-5.1)
--- NOTE | 2021-06-01 15:31 | Discharge Summary ---
Date of Service June 01, 2021 Admission HPI Per Admitting Provider Pt is a 60 y/o M with hx of HTN, HLD, DMII, Chronic back pain on chronic oxycodone brought in by ambulance after he was found unresponsive. Per EMS his glucose was 30 therefore he received dextrose. Per EMS pt also had possible seizure (last for 30 seconds) but did not get any medication. In the ER: pt had another possible seizure (lasted for 1 min) and received Ativan at that time. At bedside: pt denied any CP, SOB, POSADAS, blurry vision, abd pain, N/V or diarrhea. He complained of fatigue. Denied any recent hx of head trauma, illicit drug use, tick bite, rash or URI symptoms. He drinks about 2 12 Oz beers/day. Per pt he last had a drink 2 days ago. Admission Exam Per Admitting Provider General:. NAD, well developed HEENT:. Normal Conjunctiva, EOMI, PERRLA Lungs:. CTA, no wheezing or crackles Heart:. Normal S1, S2, no murmur Abdominal:. ND, Soft, NT, normal BS MSK:. No leg edema Neuro: CN II-XII intact, normal motor strength Skin:. no rash or open wound Psych:. AAOx2 (could not recall month and date) Principal Diagnosis (1) Alcohol withdrawal: (2) Seizure: (3) Hypoglycemia: (4) Alcohol abuse: Discharge Exam General- No acute distress Head- atraumatic Eyes- PERRL, EOMI, ENT- oropharynx clear Neck- supple, no JVD Lungs- clear to auscultation Heart- regular rhythm; no murmur Abdomen- normal bowel sounds, soft, nontender Extremities- no calf tenderness Neuro- alert, oriented x 3; PERRL, EOMI; no facial palsy; no dysarthria Skin- warm & dry Discharge Data Allergies Allergy/AdvReac Type Severity Reaction Status Date / Time No Known Allergies Allergy Unverified 05/23/21 08:47 Consultations 05/23/21 11:06 ED Decision to Admit Stat 05/23/21 11:43 Consult Neurology Routine 05/25/21 14:05 Consult Fruit Receiver Routine Ordered Studies 05/23/21 08:34 CT head/brain wo con Stat 05/23/21 12:13 MR brain seizure wo/w con Routine MR brain seizure wo/w con HISTORY: 60 years-old Male Possible seizure acute seizure like activity COMPARISON: Head CT of same day TECHNIQUE: Multiplanar multisequence MRI of the brain was obtained both with and without the use of 10.0 mL Gadavist utilizing seizure protocol. FINDINGS: Road Consultant localizer images demonstrate no gross extracranial abnormality. No restricted diffusion to suggest acute or subacute infarct. Motion degraded exam. No acute intracranial hemorrhage, midline shift, abnormal extra axial collection, hydrocephalus or intracranial mass. Minimal patchy T2/FLAIR hyperintensities throughout the subcortical white matter are nonspecific however suggests probable chronic microvascular ischemic disease. No acute seizure focus, medial temporal sclerosis, cortical dysplasia or whitfield matter heterotopia. Cerebral venous sinuses and major arterial flow voids are patent. Moderate mastoid effusion. Mild to moderate mucosal thickening of the ethmoid air cells. The skull, orbits and soft tissues are unremarkable. No abnormal intra-axial or extra-axial enhancement. IMPRESSION: 1. No acute intracranial abnormality. 2. No abnormal enhancement. ACT 112: Negative or not required by law. The above report was generated using voice recognition software. It may contain grammatical, syntax or spelling errors. Electronically signed by: Naveen Mart M.D. 05/24/2021 9:21 AM Dictated: 05/24/21 0917Transcribed: 05/24/21916 SINGLE VIEW CHEST CLINICAL HISTORY: Change in mental status. FINDINGS: An AP, portable, upright chest radiograph is obtained. No prior studies are available for comparison at the time of dictation. The examination is degraded by portable technique and apical positioning. The cardiomediastinal silhouette is unremarkable heart is top normal for projection. The lungs and pleural spaces are clear. No pneumothorax is seen. The bony thorax is grossly intact. IMPRESSION: No active disease in the chest. ACT 112: Negative or not required by law. Electronically signed by: Fadi Fields M.D. 05/23/2021 11:59 AM Dictated: 05/23/21 1158Transcribed: 05/23/[address] CT DOSE: 832.33 mGy.cm HISTORY: Altered mental status. Seizure. TECHNIQUE: Multiaxial CT images of the head were performed without the use of intravenous contrast. Automated exposure control was utilized for this study. A dose lowering technique was utilized adhering to the principles of ALARA. Comparison: None. Findings: The paranasal sinuses and right mastoid air cells are clear. There is a trace left mastoid effusion. Mild motion artifact at the posterior fossa. The calvarium and skull base are intact. The ventricles and sulci are within normal limits. There is no mass, hematoma, midline shift, or acute infarct. Impression: Mild motion artifact. No definite acute intracranial abnormality. ACT 112: Negative or not required by law. Electronically signed by: Wesley Luna M.D. 05/23/2021 9:30 AM Dictated: 05/23/21925Transcribed: 05/23/21925 Hospital Course (1) Alcohol withdrawal: (2) Seizure: (3) Hypoglycemia: (4) Alcohol abuse: 60-year-old male with PMH of HTN, HLD, DM type II, chronic back pain on chronic oxycodone brought in by ambulance 05/23 after he was found unresponsive and per EMS his glucose was 30 and was given dextrose. Per EMS, patient also had possible seizure [last for 30 seconds] but did not get any medication. He had another possible seizure lasted for 1 minute while in ER. He is being manag ed with the following: #. Alcohol withdrawal History of alcohol abuse, drinks at least 12 beers per day. Was in ICU for Precedex drip, off of ICU care 05/27 PM. Currently on AWSS protocol with as needed Ativan, DC scheduled Ativan Requiring Less Ativan per RN, scheduled Librium stopped today Patient clinically improving. Continue with thiamine and folic acid Patient eating okay. Moving bowels okay. Plan to discharge to acute rehab as per PT/OT . Counseling on alcohol cessation #. Seizure Likely secondary to hypoglycemia Neurology on board: No history of prior seizures, normal routine EEG as well as MRI brain with no evidence of intracranial abnormality. Does not recommend antiepileptics at this point. Follow-up with PCP after discharge. Recommends PT/OT. No new seizure events. Continue to monitor Continue seizure precaution #. Hypoglycemia: Hypoglycemia resolved off of glipizide. A1c 5.4 -we can de-escalate his antidiabetics; patient recently changed work schedule, working nights shifts and is likely eating less. Modify lifestyle to feet need. Continue with sliding scale Plan to stop glipizide upon discharge. Upon discharge, he will need the following (a/c critical care educator): Case discussed with pharmacy that recommended to d/c glipizide due to hypoglycemic episode a Metformin was discontinued since due to alcohol abuse that put him at risk of lactic acidosis Pharmacy suggested to start on Januvia 50mg then titrate to 100mg 1.) OneTouch Verio test strips - to check 1x/day. 2.) OneTouch Delica lancets 33 gauge - to check 1x/day. #. Chronic medical conditions: Hypertension/chronic back pain Continue with home medication Hypertension under control #. DVT prophylaxis: Lovenox Follow-up electrolytes as needed Full code Disposition-continue with PCU care. PT recommending inpatient acute rehab upon discharge. It appears that it will be hard to convince patient for rehab. He insists on going home. 05/29 updated daughter Carla [[phone]] about his status and plan of care, she seems understanding and agreeable. Total Time Total Time Spent Total Time Spent (In Minutes): 35 minutes Discharge Plan Discharge Items Patient Disposition: Transfer [facility] Reason For Visit: POSSIBLE SEIZURE & RECENT HX OF UNRESPONSIVENESS W Discharge Diagnosis: (1) Alcohol withdrawal: (2) Seizure: (3) Hypoglycemia: (4) Alcohol abuse: Activity: Resume your previous activity Non-emergency contact: Primary Care Provider Call non-emergency contact if: you have any medication questions Follow-up/Referrals: Luis Patel MD [Primary Care Provider] - (Date & Time 05/31/2021 9:00 AM Provider Amparo Chang Department [facility] ) Diet: Carb Consistent or DM2 Addtl Attending Provider Instructions: Follow up with your primary care provider once discharge to rehab Continue physical and occupational therapy Counseling on alcohol cessation Fall and seizure precaution Check BMP in 1 week to monitor your electrolytes and renal function Metformin was discontinued due to the risk of lactic acidosis from the alcohol intake Glipizide was discontinued due to the risk of low Blood sugar Starting on Januvia 50mg daily, your provider at the rehab facility can titrate it to 100mg if you able to tolerate it Continue monitor your blood sugar and follow a healthy diabetes diet. Pending Studies at Discharge: No Stand-Alone Forms: My [facility] Skilled Items Patient informed of condition?: Yes DNR: No Discharge Level of Care: Acute rehab Communicable Disease: No Discharge Prognosis: Stable Lines: None Urinary Catheter: No Medications and DC Order Prescriptions: New thiamine HCl (vitamin B1) [Vitamin B-1] 100 mg Tablet 100 mg PO QAM Qty: 30 RF: 0 hydrochlorothiazide 25 mg Tablet 12.5 mg PO QAM Qty: 30 RF: 0 oxycodone-acetaminophen [Percocet] 5-325 mg tablet 1 tab PO Q12H PRN (Reason: pain) Qty: 8 RF: 0 Januvia 50 mg tablet 50 mg PO DAILY Qty: 30 RF: 0 Continued atorvastatin 10 mg Tablet 10 mg PO DAILY RF: 0 lisinopril 10 mg Tablet 10 mg PO DAILY RF: 0 metoprolol tartrate 50 mg Tablet 50 mg PO BID RF: 0 duloxetine 30 mg Capsule,Delayed Release(Dr/Ec) 30 mg PO DAILY RF: 0 Discontinued glipizide 10 mg Tablet 10 mg PO BIDM RF: 0 oxycodone-acetaminophen 10-325 mg Tablet 1 tab PO BID RF: 0 metformin 1,000 mg Tablet 1,000 mg PO BIDM RF: 0 Discharge Orders: Discharge Order (Routine); Ordered 06/01/21 Ordered By: Horacio Carpenter/Other Patient Handouts: High Blood Sugar (Hyperglycemia), Hypoglycemia (Low Blood Sugar), Managing Type 2 Diabetes, Diabetes: Meal Planning Admission Data Admit Date/Time: 05/23/21 11:38 Attending Provider: Horacio Brewster Admit Provider: Jailene Freed Primary Care Provider: Luis Patel Other Providers: Jailene Freed ; Rudy Joshi ; Ronan Lopez ; [facility] ; Vitaliy Israel Other Interventions: Discharge Summary Assessment (RN) Last Done: 06/01/21 15:54
--- NOTE | 2021-06-13 13:01 | Coding Query ---
CODING QUERY To promote full compliance with coding requirements relating to patient care, provider participation is requested in all cases of woodworking machine operator uncertainty. Please assist us with the question(s) below: Coding Question(s): Pt admitted with alcohol withdrawl and hypoglycemia/seizures. 05/28 progress note addendum documented metabolic encephalopathy due to alcohol withdrawl. Please check the phrase that applies to the metabolic encephalopathy. Thanks for your help. Tristian Rowan, [facility] . Physician's Response(s): ___x___ Metabolic Encephalopathy was treated during this Inpatient Stay, POA Metabolic Encephalopathy was not treated during this Inpatient Stay Cannot Clinically Correlate if Metabolic Encephalopathy was treated during this Inpatient Stay Other: Please document: Principal Diagnosis: "that condition established after study, to be chiefly responsible for occasioning the admission of the patient to the hospital for care." Co-Existing Principal Diagnosis: "when two or more diagnoses equally meet the criteria for principal diagnosis as determined by the circumstances of admission, diagnostic work up, and/or therapy provided, and the Alphabetic Index, Tabular List, or another coding guideline does not provide sequencing direction, any one of the diagnoses may be sequenced first." "When the physician has documented what appears to be a current diagnosis in the body of the record, but has not included the diagnosis in the final diagnostic statement, the physician should be asked whether the diagnosis should be added." (Source Coding Clinic 2 QTR90. p3-4) IRASEMA
== END 2021-06-01 17:20 | DRG 637 ==
LOC: ED 08:24 → SUATTDRO 11:38 → 2S 11:38 → 1E 05-25 14:04 → 2W 05-29 06:45
DX: G93.41 Metabolic encephalopathy; Z79.891 Long term (current) use of opiate analgesic; F10.239 Alcohol dependence with withdrawal, unspecified; T42.75XA Adverse effect of unspecified antiepileptic and sedative-hypnotic drugs, initial encounter; F10.229 Alcohol dependence with intoxication, unspecified; Z79.84 Long term (current) use of oral hypoglycemic drugs; M54.9 Dorsalgia, unspecified; E87.2 Acidosis; Y92.239 Unspecified place in hospital as the place of occurrence of the external cause; I10 Essential (primary) hypertension; G40.89 Other seizures; R00.1 Bradycardia, unspecified; E11.649 Type 2 diabetes mellitus with hypoglycemia without coma